=== PATIENT | female | born 1935 | race Caucasian/White ===

== ENCOUNTER 2025-03-02 14:46 | Inpatient (IN) | payer MEDICARE, BC, SELFPAY ==
[2025-03-02 14:48] VITALS: BP 181/78; PULSE 73; RESP 18; TEMP 36.7; O2SAT 97; BMI 25.7
--- NOTE | 2025-03-02 15:37 | EKG_ITS ---
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: : 1935 Requested By: Kt Fuentes Order Number: [id number] Reading MD: Kt Fuentes Measurements Intervals [place] Rate: 70 P: VA: QRS: -4 QRSD: 106 T: -60 QT: 367 QTc: 396 Interpretive Statements ATRIAL FIBRILLATION WITH ABERRANT CONDUCTION OR VENTRICULAR PREMATURE COMPLEXES POSSIBLE LEFT VENTRICULAR HYPERTROPHY [VOLTAGE CRITERIA PLUS LAE OR QRS WIDENING] PROBABLE LATERAL MYOCARDIAL INFARCTION , OF INDETERMINATE AGE [35 ms Q WAVE IN I/aVL/V5/V6] ST DEPRESSION, CONSIDER SUBENDOCARDIAL INJURY [0.1+ mV ST DEPRESSION] No previous ECG available for comparison /store/S0/[id number].pdf
--- NOTE | 2025-03-02 15:38 | PD.EDABDPN ---
ED Abdominal Pain RME/HPI General Chief Complaint: GI Bleed Stated complaint: RECTAL BLEED Time seen by provider: 03/02/25 15:24 Arrival date/time: 03/02/25 14:46 RME / HPI RME / HPI narrative: 89-year-old female patient with significant history of hypertension, came in for evaluation regarding lower abdominal pain. Onset of symptoms since last night as sudden onset of lower abdominal pain, described as sharp pain, severity moderate. Patient had total of 3 episodes old bloody stool, described as bright red. And currently her diaper is soaked with blood also patient denies any bleeding in the vagina. Denies any vomiting denies any other complaints. Patient is not taking any blood thinner. She stopped taking her aspirin several weeks ago. Related Data Home Medications ?Medication ?Instructions ?Recorded ?Confirmed Hydrocodone/Acetaminophen * (NORCO 1 tab PO Q6H PRN Low Back Pain 02/11/23 02/11/23 5/325 *) amlodipine 2.5 mg tablet 2.5 mg PO BID 02/11/23 02/11/23 aspirin 81 mg tablet 81 mg PO QDAY 02/11/23 02/11/23 atorvastatin 20 mg tablet 20 mg PO QPM 02/11/23 02/11/23 carvedilol 12.5 mg tablet 12.5 mg PO BID 02/11/23 02/11/23 dicyclomine 20 mg tablet 20 mg PO Q8HR PRN nausea/vomiting 02/11/23 02/11/23 docusate sodium 100 mg tablet 100 mg PO QDAY 02/11/23 02/11/23 ergocalciferol (vitamin D2) 50,000 50,000 unit PO Q7D 02/11/23 02/11/23 unit tablet furosemide 20 mg tablet 20 mg PO QDAY 02/11/23 02/11/23 lorazepam 0.5 mg tablet 0.5 mg PO Q12H PRN Anxiety 02/11/23 02/11/23 ondansetron HCl 4 mg tablet 4 mg PO Q6H 02/11/23 02/11/23 potassium chloride 20 mEq 20 meq PO QDAY 02/11/23 02/11/23 tablet,extended release Allergies Allergy/AdvReac Type Severity Reaction Status Date / Time No Known Allergies Allergy Verified 03/02/25 15:46 Review of Systems Review of Systems Narrative Review of Systems: Review of system reviewed and within normal limits except mentioned in HPI ED Exam Narrative Physical exam: VITAL SIGNS: Reviewed. GENERAL APPEARANCE: Alert and interactive, follows commands, no acute distress, HEAD AND FACE: Non-traumatic. ENT: PERRL, pale conjunctiva, eyelid no trauma, Mucous membrane moist. NECK: Supple, nontender, no nuchal rigidity. CHEST: No tenderness, no crepitus, no paradoxical movement, no retractions. LUNGS: Clear, well ventilated, symmetric, no rales, no wheezing, no ronchi, no stridor, good breath sounds bilaterally. HEART: Regular rate, regular rhythm, no murmur, no gallops. ABDOMEN: Soft, positive bowel sounds, nondistended, no guarding, nontender, no rebound, no masses, RECTAL: Deferred. GENITAL: Deferred. NEUROLOGICAL: Gross motor function intact sensory function intact, Appropriate for age. MUSCULOSKELETAL: low back nontender, full range of motion. EXTREMITIES: Nontender, full range of motion. SKIN: Color pale, dry, no rash, no lacerations, no abrasions, no contusions. LYMPHATICS: Deferred. Course Quality Measures none Orders Category Date Time Status COVID-19 Screening Questionnaire NOW Care 03/02/25 22:[address] Screening NOW Care 03/02/25 15:[address] Screening NOW Care 03/02/25 15:57 Active Decision to Admit X1 Care 03/02/25 22:27 Active EKG (ED ONLY) *Do not use* NOW Care 03/02/25 15:37 Completed Occult Blood,Stool (Nursing) NOW Care 03/02/25 15:37 Active Consult to Gastroenterology Stat Cons 03/02/25 22:[address] angio abdomen pelvis Stat Exams 03/02/25 15:57 Completed EKG (ED Only) Stat Exams 03/02/25 15:37 Draft CBC Stat Lab 03/02/25 15:53 Completed Comprehensive Metabolic Panel Stat Lab 03/02/25 15:53 Completed Occult Blood, Stool (LAB) Stat Lab 03/02/25 21:18 Completed Partial Thromboplastin Time Stat Lab 03/02/25 15:53 Completed Prothrombin Time with INR Stat Lab 03/02/25 15:53 Completed Stool Culture Stat Lab 03/02/25 22:25 Ordered Troponin I Stat Lab 03/02/25 15:53 Completed Type and Screen Stat Lab 03/02/25 15:53 Completed UA, C/S IF [Urinalysis, C/S if Indicated] Stat Lab 03/02/25 19:00 Completed Urinalysis Stat Lab 03/02/25 19:00 Completed Urine Culture Stat Lab 03/02/25 19:00 Received c diff [Clostridium Difficile PCR] Stat Lab 03/02/25 Ordered CIPROFLOXACIN/D5w 400 MG IVPB [Cipro Ivpb] Med 03/02/25 22:24 Active 400 mg in 200 ml IV X1 NA EVANS/NAHCO3/ANTHONY/PEG (Golytely) [Golytely] Med 03/02/25 22:24 Discontinued 4,000 ml PO X1 ONE Piper/Tazo 3.375 gm Premix [Zosyn] Med 03/02/25 20:26 Discontinued 3.375 gm in 50 ml IV X1 Ringers Lactated 1000 ml [Lactated Ringers] 1,000 ml Med 03/02/25 21:05 Discontinued IV 999 mls/hr metroNIDAZOLE/NS 500 MG IVPB [Flagyl 500 mg IV] Med 03/02/25 22:24 Active 500 mg in 100 ml IV X1 Vital Signs Vital signs: Vital Signs Temperature 98.1 F 03/02/25 14:48 Pulse Rate 73 03/02/25 14:48 Respiratory Rate 18 03/02/25 14:48 Blood Pressure 181/78 H 03/02/25 14:48 Pulse Oximetry (%) 97 03/02/25 14:48 Oxygen Delivery Method Room Air 03/02/25 14:48 Abdominal Pain MDM MDM Narrative MDM Narrative:: 89-year-old female patient with significant history of hypertension, came in for evaluation regarding lower abdominal pain. Onset of symptoms since last night as sudden onset of lower abdominal pain, described as sharp pain, severity moderate. Patient had total of 3 episodes old bloody stool, described as bright red. And currently her diaper is soaked with blood also patient denies any bleeding in the vagina. Denies any vomiting denies any other complaints. Patient is not taking any blood thinner. She stopped taking her aspirin several weeks ago. CBC showed leukocytosis of 14.7 hemoglobin of 16.2 hematocrit of 49, creatinine is normal urinalysis significant for UTI. CT scan of the abdomen and pelvis showed Diffuse severe nonspecific colitis pattern, differential would include ulcerative colitis, Crohn's disease EKG showed atrial fibrillation, ventricular rate of 70 bpm, no ST segment elevation or depression noted. I spoke with bootmaker, Dr. Valenzuela, who advised me to asked hospitalist to admit the patient for colonoscopy in the morning. Thank you Dr. Valenzuela Spoke with hospitalist, who admitted the patient. Patient data External records reviewed:: None Clinical information provided by:: patient Social determinants that could affect healthcare access:: none Patient has the following chronic illnesses:: Hypertension How is presenting disease/condition affected by chronic disease/condition?: uneffected by Evaluation data The following diagnostics were reviewed and interpreted by me:: lab results, radiology exam(s) and EKG tracing(s) Lab and/or radiology exams considered but not ordered:: None Interpretation Summary: See results MDM Medications / Prescriptions Medications or Prescriptions considered but not ordered:: None Medication administrations:: Medication Administration History Ciprofloxacin/Dextrose (Cipro Ivpb) 400 mg in 200 mls @ 200 mls/hr IV X1 ONE Stop: 03/02/25 23:23 Metronidazole (Flagyl 500 Mg Iv) 500 mg in 100 mls @ 100 mls/hr IV X1 ONE Stop: 03/02/25 23:23 Discontinued Medications Piperacillin/Tazobactam/Dextrose (Zosyn) 3.375 gm in 50 mls @ 100 mls/hr IV X1 ONE Stop: 03/02/25 20:55 Last Infusion: 03/02/25 22:39 Dose: Infused Documented By: Admin: 03/02/25 21:46 Dose: 100 mls/hr Documented By: ANNEMARIE Lactated Ringer's (Lactated Ringers) 1,000 mls @ 999 mls/hr IV .Q1H1M ONE Stop: 03/02/25 22:05 Last Admin: 03/02/25 21:49 Dose: 999 mls/hr Documented By: ANNEMARIE Polyethylene Glycol/Electrolytes (Na Evans/Nahco3/Anthony/Peg (Golytely) 4,000 Ml Btl) 4,000 ml PO X1 ONE Stop: 03/02/25 22:25 Cipro, Flagyl, Zosyn IV. Patient also received IV fluids for hydration Consultations Consultation(s) initiated? (list below): No Diagnosis Differential diagnosis abdominal pain: abdominal pain and gastroenteritis Most likely diagnosis given after review of the tests above:: Abdominal pain, severe colitis, UTI Admission Indicated Admission indicated?: indicated Explain why admission is indicated or not indicated:: For further management. Admission Request Was there a request for admission?: No Disposition Plan Disposition Plan: Admit Discharge Plan Plan Patient Disposition: Admit Acute Care w/in Hospital Prescriptions/Referrals Prescriptions/Med Rec: No Action atorvastatin 20 mg Tablet 20 mg PO QPM carvedilol 12.5 mg Tablet 12.5 mg PO BID Rx Instructions: must administer with a meal/food amlodipine 2.5 mg Tablet 2.5 mg PO BID dicyclomine 20 mg Tablet 20 mg PO Q8HR PRN (Reason: nausea/vomiting) aspirin 81 mg Tablet 81 mg PO QDAY docusate sodium 100 mg Tablet 100 mg PO QDAY ergocalciferol (vitamin D2) 50,000 unit Tablet 50,000 unit PO Q7D furosemide 20 mg Tablet 20 mg PO QDAY Hydrocodone/Acetaminophen * (NORCO 5/325 *) 1 TAB tablet 1 tab PO Q6H PRN (Reason: Low Back Pain) lorazepam 0.5 mg Tablet 0.5 mg PO Q12H PRN (Reason: Anxiety) ondansetron HCl [Zofran] 4 mg Tablet 4 mg PO Q6H potassium chloride 20 mEq Tablet Extended Release 20 meq PO QDAY Referrals: Barry Noel MD [Primary Care Provider] - In 1 week Problem List Clinical Impression: Abdominal pain, Severe hemorrhagic colitis, UTI (urinary tract infection) Patient/Caregiver Discharge Instructions Print Language: Icelandic Stand Alone Forms: Nathalia Award Info., Patient Portal Info Letter
[2025-03-02 15:42] VITALS: PULSE 75; RESP 12; O2SAT 96
--- NOTE | 2025-03-02 15:57 | XR_ITS ---
Examination: . CTA abdomen, with intravenous contrast. CTA pelvis, with intravenous contrast. 2-D sagittal and coronal reconstructions. 3-D reconstructions. Date and time of exam: March 02, 2025 2030 hours INDICATIONS: Lower abdominal pain and gastrointestinal bleeding beginning 2 days ago CTDI vol (mgy) 12.1 DLP (MGycm) 590 Technique: Multiple CTA images, 2.0 mm slice thickness, obtained abdomen, pelvis, with the high-resolution 64 slice scanner. 100 cc Isovue 370 is administered intravenously. Sagittal and coronal 2-D reconstructions are obtained. 3-D reconstructions, angiographic images are obtained. 3-D postprocessing, including vascular maximum intensity projections. Low dose protocols were performed. One or more of the following dose reduction techniques were used; automated exposure control, adjustment of the mA and/or KV according to patient size, use of iterative reconstruction technique. Findings: Liver is irregular in contour, no focal liver lesions Multiple gallstones Spleen is not enlarged No pancreatic mass No hydronephrosis Ectatic abdominal aorta which is heavily calcified No bowel obstruction, no pericecal inflammatory change Diffuse edema and inflammatory change involving the colon No bladder mass Diffuse advanced lumbar disc narrowing IMPRESSION: Diffuse severe nonspecific colitis pattern, differential would include ulcerative colitis, Crohn's disease
[2025-03-02 15:58] LABS: Basophils # (Auto) 0.1 Thou/mm3 (0.0-0.2); Basophils % (Auto) 0 % (0-2.5); Eosinophils # (Auto) 0.2 Thou/mm3 (0.0-0.5); Eosinophils % (Auto) 1 % (0-10); Hematocrit 49.0 % (36.0-46.0); Hemoglobin 16.2 g/dL (12.0-16.0); Immature Granulocytes Auto 0.04 Thou/mm3 (0.00-0.00); Lymphocytes # (Auto) 3.0 Thou/mm3 (1.0-4.8); Lymphocytes % (Auto) 21 % (10-50); Mean Corpuscular HGB Conc 33.1 g/dl (31.0-37.0); Mean Corpuscular Hemoglobin 32.5 pg (25.0-35.0); Mean Corpuscular Volume 98 fL (80-100); Monocytes # (Auto) 1.0 Thou/mm3 (0.0-0.8); Monocytes % (Auto) 7 % (0-12); Neutrophils # (Auto) 10.4 Thou/mm3 (1.8-7.7); Neutrophils % (Auto) 71 % (37-80); Nucleated Red Blood Cell # 0.00 Thou/mm3 (0.00-0.00); Nucleated Red Blood Cell % 0 /100 WBC (0); Platelet Count 319 Thou/mm3 (140-440); RDW Standard Deviation 50.4 fL (36.4-46.3); Red Blood Count 4.98 Miln/mm3 (4.00-5.20); White Blood Count 14.7 Thou/mm3 (3.6-11.0)
[2025-03-02 16:19] LABS: INR 1.0 (0.9-1.3); Partial Thromboplastin Time 26.9 Seconds (22.0-36.0); Prothrombin Time 11.3 Seconds (9.0-12.2)
[2025-03-02 16:26] LABS: Alanine Aminotransferase 17 U/L (10-49); Albumin, Serum 4.0 gm/dL (3.4-4.8); Albumin/Globulin Ratio 1.6 (1.2-2.2); Alkaline Phosphatase 136 U/L (46-116); Anion Gap 3 (7-16); Aspartate Amino Transferase 20 U/L (0-34); BUN/Creatinine Ratio 14 Ratio (12-20); Bilirubin,Total 0.9 mg/dL (0.3-1.2); Blood Urea Nitrogen 14 mg/dL (9-23); Calcium 10.9 mg/dL (8.3-10.6); Calcium (Corrected) 10.9 mg/dL (8.5-10.1); Carbon Dioxide 27.9 mMol/L (20.0-31.0); Chloride 109 mMol/L (98-107); Creatinine (Component) 1.0 mg/dL (0.6-1.3); Estimated Creatinine Clearance 41.8 mL/min (>60); Globulin 2.5 gm/dL (2.3-3.5); Glucose 110 mg/dL (74-106); Osmolality,Calculated 280 (275-295); Potassium 4.9 mMol/L (3.4-5.1); Sodium 140 mMol/L (136-145); Total Protein 6.5 gm/dL (5.7-8.2); Troponin I 0.032 ng/mL (0.0-0.045); eGFR 54 See Note
[2025-03-02 16:55] VITALS: BP 158/89; PULSE 62; RESP 18; TEMP 37.1; O2SAT 93
[2025-03-02 18:40] VITALS: BP 157/81; PULSE 78; RESP 17; TEMP 36.9; O2SAT 95
[2025-03-02 19:11] LABS: Collection Type, Urine Clean Catch
[2025-03-02 19:35] LABS: Bacteria,Urine 4+; Bilirubin,Urine Negative (Negative); Blood,Urine 3+ (Negative); Clarity,Urine Turbid (Clear/Hazy); Color,Urine Orange (Lt Yel-Yel); Culture Indicated,Urine Yes; Glucose, Urine Negative (Negative); Ketones,Urine Negative (Negative); Leukocyte Esterase,Urine Positive (Negative); Nitrite,Urine Positive (Negative); PH,Urine 6.0 (5.0-7.0); Protein,Urine 2+ (Neg - Trace); RBC,Urine 1747 /hpf (0-3); Specific Gravity,Urine 1.026 (1.001-1.035); Squamous Epithelial Cell,Urine 4 /hpf (0-5); Urobilinogen,Urine Negative mg/dL (0.0-1.0); WBC,Urine 787 /hpf (0-5)
[2025-03-02 19:49] VITALS: BP 149/80; PULSE 75; RESP 16; TEMP 36.9; O2SAT 96
--- NOTE | 2025-03-02 19:55 | PC.NURSE ---
PT BIBA FROM HOME FOR RECTAL BLEEDING. PT STATES THAT SHE NOTICED BRIGHT RED BLOOD IN HER BRIEF AND TOILET. PT CLAIMS SHE TAKES A BLOOD THINNER BUT ISNT POSITIVE OF WHICH ONE. THIS RN CALLED SON DELORIS TO CONFIRM IF PT IS ON BLOOD THINNER ACCORDING TO DELORIS SHE DOES NOT TAKE BLOOD THINNER
--- NOTE | 2025-03-02 20:00 | PC.NURSE ---
PT DUSTY FROM HOME FOR RECTAL BLEEDING. PT STATES THAT SHE NOTICED BRIGHT RED BLOOD IN HER BRIEF AND TOILET. PT CLAIMS SHE TAKES A BLOOD THINNER BUT ISNT POSITIVE OF WHICH ONE. THIS RN CALLED SON DELORIS TO CONFIRM IF PT IS ON BLOOD THINNER ACCORDING TO DELORIS SHE DOES NOT TAKE BLOOD THINNER . PER PT I THINK MY SON IS WRONG, I WAS GIVEN BLOOD THINNER AT [facility] . PT DOESNT KNOW WHICH BLOOD THINNER
[2025-03-02 21:37] LABS: OBS Card Lot # 0124; OBS Performed By macis3; OBS QC OK? Yes
[2025-03-02] MEDS: PIPER/TAZO 3.375 GM PREMIX 3.375 GM/50 ML BAG IV (21:46)
[2025-03-02 21:48] LABS: OBS Developer Lot # 0424; Occult Blood, Stool Positive (Negative)
[2025-03-02] MEDS: RINGERS LACTATED 1000 ML 1,000 ML 999 ML IV (21:49)
[2025-03-02] MEDS: CIPROFLOXACIN/D5w 400 MG IVPB 400 MG/200 ML BAG 200 MG IV (22:59)
--- NOTE | 2025-03-02 23:23 | PD.IMCONS ---
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 and the CT scan of the abdomen pelvis showed diffuse colitis and patient was subsequently admitted Admitting WBC count was 14.7 with a hemoglobin hematocrit 16.2 and 49.0 Patient also has nonbloody nausea vomiting cc:: cc: Review of Systems Review of Systems Systems Reviewed: All systems reviewed, normal except as documented Past Medical History Surgical History OTHER SURGICAL HX: Essential hypertension Hyperlipidemia Meds Home Medications and Allergies Home Medications ?Medication ?Instructions ?Recorded ?Confirmed ?Type Hydrocodone/Acetaminophen * (NORCO 1 tab PO Q6H PRN Low Back Pain 02/11/23 02/11/23 History 5/325 *) amlodipine 2.5 mg tablet 2.5 mg PO BID 02/11/23 02/11/23 History aspirin 81 mg tablet 81 mg PO QDAY 02/11/23 02/11/23 History atorvastatin 20 mg tablet 20 mg PO QPM 02/11/23 02/11/23 History carvedilol 12.5 mg tablet 12.5 mg PO BID 02/11/23 02/11/23 History dicyclomine 20 mg tablet 20 mg PO Q8HR PRN nausea/vomiting 02/11/23 02/11/23 History docusate sodium 100 mg tablet 100 mg PO QDAY 02/11/23 02/11/23 History ergocalciferol (vitamin D2) 50,000 50,000 unit PO Q7D 02/11/23 02/11/23 History unit tablet furosemide 20 mg tablet 20 mg PO QDAY 02/11/23 02/11/23 History lorazepam 0.5 mg tablet 0.5 mg PO Q12H PRN Anxiety 02/11/23 02/11/23 History ondansetron HCl 4 mg tablet 4 mg PO Q6H 02/11/23 02/11/23 History potassium chloride 20 mEq 20 meq PO QDAY 02/11/23 02/11/23 History tablet,extended release atenolol 50 mg tablet 50 mg PO Q24H 03/03/25 03/03/25 History atorvastatin 80 mg tablet 80 mg PO HS 03/03/25 03/03/25 History Allergies Allergy/AdvReac Type Severity Reaction Status Date / Time No Known Allergies Allergy Verified 03/02/25 15:46 Exam Vital Signs Temp Pulse Resp BP Pulse Ox O2 Del Method 98.4 F 75 16 149/80 H 96 Room Air 03/02/25 19:49 03/02/25 19:49 03/02/25 19:49 03/02/25 19:49 03/02/25 19:49 03/02/25 19:49 Constitutional Comments: Not in any acute distress Routine Respiratory Exam Comments: Normal to auscultation Routine Abdominal Exam Comments: Soft nontender positive bowel sounds Results Labs 03/03/25 05:00 03/03/25 05:00 Labs: Short CBC 03/02/25 Range/Units 15:53 WBC 14.7 H (3.6-11.0) Thou/mm3 Hgb 16.2 H (12.0-16.0) g/dL Hct 49.0 H (36.0-46.0) % Plt Count 319 (140-440) Thou/mm3 BMP 03/02/25 15:53 Sodium 140 Potassium 4.9 Chloride 109 H Carbon Dioxide 27.9 BUN 14 Creatinine 1.0 Glucose 110 H Calcium 10.9 H Cardiac Enzymes 03/02/25 Range/Units 15:53 Troponin I 0.032 (0.0-0.045) ng/mL Liver Function 03/02/25 Range/Units 15:53 Total Bilirubin 0.9 (0.3-1.2) mg/dL AST 20 (0-34) U/L ALT 17 (10-49) U/L Alkaline Phosphatase 136 H (46-116) U/L Albumin 4.0 (3.4-4.8) gm/dL Urine 03/02/25 Range/Units 19:00 Urine Color [place] A (Lt Yel-Yel) Urine Clarity Turbid A (Clear/Hazy) Urine pH 6.0 (5.0-7.0) Ur Specific [place] 1.026 (1.001-1.035) Urine Protein 2+ A (Neg - Trace) Urine Glucose (UA) Negative (Negative) Assessment and Plan Additional Assessment & Plan Additional Plan: # Hematochezia # Abnormal CT scan of the abdomen pelvis showing diffuse colitis Differential diagnoses include infectious versus inflammatory colitis possibility of ischemic colitis as well Plan Clear liquid diet GoLytely prep Consent for colonoscopy with possible biopsy possible therapeutic intervention under intravenous moderate sedation Stool for culture and sensitivity Stool for C. difficile # Nausea vomiting of uncertain etiology Will monitor the symptoms Before deciding for an upper endoscopy prior to discharge Other medical problems include Essential hypertension Hyperlipidemia Thank you very much for the opportunity to participate in the care of this patient
[2025-03-03] VITALS (11 sets, daily range): BP systolic 133–192; BP diastolic 56–101; PULSE 66–89; RESP 12–20; TEMP 36.1–36.8; O2SAT 94–98
[2025-03-03] MEDS: metroNIDAZOLE/NS 500 MG IVPB 500 MG/100 ML BAG 100 MG IV (00:02)
--- NOTE | 2025-03-03 00:33 | PC.LAC ---
PER HOUSE SUP TO WAIT UNTIL PT GETS UP STAIR TO GIVE PT GOLYTE. PROVIDER NOTIFED OF WAIT
--- NOTE | 2025-03-03 00:58 | PC.NURSE ---
DENA SANCHEZ WAS CALLED TO BRING MEDS FOR BP
[2025-03-03] MEDS: NA SU/NAHCO3/KC/PEG (Golytely) 4,000 ML BTL 4000 ML PO ×2 (01:33→23:26)
--- NOTE | 2025-03-03 02:49 | ESHP_ITS ---
<Statement entered by Malvin Arambula MD - 03/03/25 07:20> I have discussed and was present for the essential components of the history, physical examination, diagnosis, and treatment plan with the resident. I agree with the patient's care as documented by the resident and amended herein by me. Malvin Arambula MD FACP. Documentation for date of: 03/02/25 HPI History of Present Illness History of present illness: Sosa German is an 89-year-old F with a PMH of hypertension who presents today with hematochezia, abdominal pain, and vomiting. Patient reports that she woke up this morning to find her underwear soaked in blood at around 7 AM. Shortly after, she went to the restroom to have a bowel movement which produced stool with bright red blood. This prompted the patient to call her son to let him know what had happened and son called the ambulance which brought her to the emergency department. Patient reports that she noticed intermittent spotting of blood in her underwear along with lower abdominal pain starting 2 to 3 weeks ago. Then, beginning last week, she began to have nausea and vomiting as well as a sensation of pain and burning with peeing along with increased urinary frequency. She has had 5 episodes of non-bloody emesis since the onset of her symptoms and describes her urine as dark yellow in color. At the time of interview, she did not endorse current pain and denied any recent travel or sick contacts. In the ED, vitals showed: BP 181/78 HR 73 RR 18 Temp 98.1 SpO2 97% on room air ED Course: CBC showed leukocytosis with neutrophilic predominance, and, surprisingly, slightly high Hgb 16.2. Coagulation panel was within normal limits. CMP showed slightly reduced EGFR 54, slightly high corrected calcium 10.9, and slightly high alkaline phosphatase 136. UA showed turbid, orange urine with 4+ bacteria, 3+ blood, 2+ protein, high RBC 1747, high WBC 787, and positive for leukocyte esterase and nitrite. Stool occult blood was positive. Imaging: CTAP showed diffuse severe nonspecific colitis pattern, possibly indicative of ulcerative colitis or Crohn's disease. EKG, on machine read, showed atrial fibrillation with aberrant conduction or ventricular premature complexes, possible left ventricular hypertrophy, probable lateral myocardial infarction of indeterminate age, and ST depression possibly suggestive of subendocardial injury. In the ED, patient was given Zosyn, ciprofloxacin, metronidazole, and 1 L lactated Ringer's bolus. Patient was admitted for the work-up and management of GI bleed likely 2/2 severe hemorrhagic colitis, acute cystitis with hematuria, atrial fibrillation, and hypertensive urgency . GI (Dr. Valenzuela) is already aware of the patient and has asked that the patient to be started on GoLytely for possible endoscopy tomorrow. Review of Systems Review of Systems Narrative Review of Systems: General: Denies fevers or chills HEENT: Denies congestion or sore throat Heart: Endorses palpitations and leg swelling. Denies chest pain Lungs: Denies shortness of breath or cough Abdomen: Endorses blood in stool. Endorses left lower quadrant abdominal pain. Endorses nausea and vomiting. Denies constipation and diarrhea Genitourinary: Endorses dysuria and burning when peeing. Endorses urinary frequency and hematuria Neurology: Denies any changes in vision, weakness or difficulty speaking Review of systems otherwise negative except what is mentioned above. Past Medical History Past Medical History CARDIAC: Positive Cardiac Disorders, Hypercholesterolemia and Hypertension; Negative Congestive Heart Failure RESPIRATORY: Negative Chronic Obstructive Pulmonary Disease (COPD) or Asthma GENITOURINARY: Negative Renal Disease ENDOCRINE: Negative Diabetes Mellitus Type 1 or Diabetes Mellitus Type 2 HEMATOLOGIC: Negative Sickle Cell Disease OTHER HISTORY: Negative Blood Transfusions Social History SMOKING STATUS: Never smoker Past Medical History Comments PMH COMMENT: PMH: Hypertension, scoliosis PSH: hysterectomy (age 37) for uterine fibroids that caused her period to coming earlier and earlier until she was bleeding all the time, midurethral sling for urinary incontinence (age 40), cataract removal (age 84) Medications: amlodipine, atenolol, atorvastatin, Plavix, HCT, losartan, Protonix Allergies: none FH: HTN in mom and dad SH: lives in a house in [place] alone (has caregiver who comes 3x a week) Exam Vital Signs Temp Pulse Resp BP Pulse Ox O2 Del Method 97.7 F 80 18 152/101 H 95 Room Air 03/03/25 02:37 03/03/25 02:37 03/03/25 02:37 03/03/25 02:37 03/03/25 02:37 03/03/25 02:37 Narrative Exam Physical Exam: General: Alert, no acute distress. Skin: Warm, dry, intact, no obvious rash. Head: Normocephalic, atraumatic. Eye: Normal conjunctiva, PERRL. Throat: Oral mucosa moist. No obvious lesions in oropharynx. Cardiovascular: Regular rate and rhythm, no murmur, +S1/S2. Respiratory: Lungs are clear to auscultation, respirations unlabored, no crackles, no wheezing. Gastrointestinal: Tenderness to palpation of the LLQ abdomen. Soft, non- distended. No guarding or rebound tenderness. Extremities: No edema, no cyanosis, no clubbing. 2+ radial pulse bilaterally, 2+ posterior tibial pulse bilaterally. Neuro: No focal deficits observed. Conversant, moving all extremities. No overt cerebellar signs/incoordination. Psychiatric: Cooperative, appropriate affect. Results: Labs 03/02/25 15:53 03/02/25 15:53 Labs: Short CBC 03/02/25 Range/Units 15:53 WBC 14.7 H (3.6-11.0) Thou/mm3 Hgb 16.2 H (12.0-16.0) g/dL Hct 49.0 H (36.0-46.0) % Plt Count 319 (140-440) Thou/mm3 BMP 03/02/25 15:53 Sodium 140 Potassium 4.9 Chloride 109 H Carbon Dioxide 27.9 BUN 14 Creatinine 1.0 Glucose 110 H Calcium 10.9 H Cardiac Enzymes 03/02/25 Range/Units 15:53 Troponin I 0.032 (0.0-0.045) ng/mL Liver Function 03/02/25 Range/Units 15:53 Total Bilirubin 0.9 (0.3-1.2) mg/dL AST 20 (0-34) U/L ALT 17 (10-49) U/L Alkaline Phosphatase 136 H (46-116) U/L Albumin 4.0 (3.4-4.8) gm/dL Urine 03/02/25 Range/Units 19:00 Urine Color Pep A (Lt Yel-Yel) Urine Clarity Turbid A (Clear/Hazy) Urine pH 6.0 (5.0-7.0) Ur Specific [place] 1.026 (1.001-1.035) Urine Protein 2+ A (Neg - Trace) Urine Glucose (UA) Negative (Negative) Quality Measures Quality Measures none Advance care planning discussed with:: patient Medications Home Medications and Allergies Home Medications ?Medication ?Instructions ?Recorded ?Confirmed ?Type Hydrocodone/Acetaminophen * (NORCO 1 tab PO Q6H PRN Lo w Back Pain 02/11/23 02/11/23 History 5/325 *) amlodipine 2.5 mg tablet 2.5 mg PO BID 02/11/2302/11 History aspirin 81 mg tablet 81 mg PO QDAY 02/11/2302/11 History atorvastatin 20 mg tablet 20 mg PO QPM 02/11/23 History carvedilol 12.5 mg tablet 12.5 mg PO BID 02/11/2302/01 History dicyclomine 20 mg tablet 20 mg PO Q8HR PRN nausea/vom iting 02/11/23 02/11/23 History docusate sodium 100 mg tablet 100 mg PO QDAY 02/11/23 02/11/23 History ergocalciferol (vitamin D2) 50,000 50,000 unit PO Q7D 02/11/23 02/11/23 History unit tablet furosemide 20 mg tablet 20 mg PO QDAY 02/11/2302/11 History lorazepam 0.5 mg tablet 0.5 mg PO Q12H PRN Anxiety 0 02/11/23 02/11/23 History ondansetron HCl 4 mg tablet 4 mg PO Q6H 02/11/2302/11 History potassium chloride 20 mEq 20 meq PO QDAY 02/11/2302/01 History tablet,extended release Allergies Allergy/AdvReac Type Severity Reaction Status Date / Time No Known Allergies Allergy Verified 03/02/25 15:46 Visit Medications Acetaminophen (Acetaminophen 325 Mg Tablet) 650 mg PO Q6H PRN PRN Reason: PAIN SCALE 1-3 (mild Stop: 04/02/25 00:23 Amlodipine Besylate (Amlodipine Besylate 2.5 Mg Tablet) 2.5 mg PO BID MINOR Stop: 04/02/25 00:44 Atorvastatin Calcium (Atorvastatin Calcium 20 Mg Tablet) 20 mg PO QPM MINOR Stop: 04/02/25 20:59 Carvedilol (Carvedilol 12.5 Mg Tablet) 12.5 mg PO BID MINOR Stop: 04/02/25 00:44 Last Admin: 03/03/25 01:32 Dose: 12.5 mg Furosemide (Furosemide 20 Mg Tablet) 20 mg PO QDAY MINOR Stop: 04/02/25 08:59 Piperacillin/Tazobactam/Dextrose (Zosyn) 3.375 gm in 50 mls @ 100 mls/hr IV Q8HR MINOR Stop: 03/10/25 05:59 Lorazepam (Lorazepam 0.5 Mg Tablet) 0.5 mg PO Q12H PRN PRN Reason: Anxiety Stop: 03/08/25 00:37 Non-Formulary Medication (Ergocalciferol (Vitamin D2)) 50,000 unit PO Q7D MINOR Stop: 04/02/25 00:44 Non-Formulary Medication (Hydrocodone/Acetaminophen * (Sonoita 5/325 *)) 1 tab PO Q6H PRN PRN Reason: Low Back Pain Ondansetron HCl (Ondansetron Inj 2 Mg/Ml Inj 2 Ml) 4 mg IVP Q6H PRN; Protocol PRN Reason: NAUSEA OR VOMITING Stop: 04/02/25 00:23 Pantoprazole Sodium (Pantoprazole Inj 40 Mg Vial) 40 mg IVP QDAY MINOR Stop: 04/02/25 08:59 Sennosides (Senna Tablet) 1 tab PO QDAY PRN; Protocol PRN Reason: constipation Stop: 04/02/25 00:23 Discontinued Medications Piperacillin/Tazobactam/Dextrose (Zosyn) 3.375 gm in 50 mls @ 100 mls/hr IV X1 ONE Stop: 03/02/25 20:55 Last Infusion: 03/02/25 22:39 Dose: Infused Lactated Ringer's (Lactated Ringers) 1,000 mls @ 999 mls/hr IV .Q1H1M ONE Stop: 03/02/25 22:05 Last Infusion: 03/02/25 23:18 Dose: Infused Ciprofloxacin/Dextrose (Cipro Ivpb) 400 mg in 200 mls @ 200 mls/hr IV X1 ONE Stop: 03/02/25 23:23 Last Infusion: 03/03/25 00:00 Dose: Infused Metronidazole (Flagyl 500 Mg Iv) 500 mg in 100 mls @ 100 mls/hr IV X1 ONE Stop: 03/02/25 23:23 Last Infusion: 03/03/25 01:06 Dose: Infused Polyethylene Glycol/Electrolytes (Na Evans/Nahco3/Anthony/Peg (Golytely) 4,000 Ml Btl) 4,000 ml PO X1 ONE Stop: 03/02/25 22:25 Last Admin: 03/03/25 00:31 Dose: Not Given Polyethylene Glycol/Electrolytes (Na Evans/Nahco3/Anthony/Peg (Golytely) 4,000 Ml Btl) 4,000 ml PO X1 ONE Stop: 03/02/25 23:27 Last Admin: 03/03/25 01:33 Dose: 4,000 ml Assessment & Plan Assessment Sosa German is an 89-year-old F with a PMH of hypertension who presents today with hematochezia, abdominal pain, and vomiting. Patient was admitted for the work-up and management of GI bleed likely 2/2 severe hemorrhagic colitis, acute cystitis with hematuria, atrial fibrillation, and hypertensive urgency. #GI bleed (likely lower) #likely 2/2 severe hemorrhagic colitis #Hematochezia #Abdominal Pain Initial presentation: nicole hematochezia and bright, red, bloody stool starting today without hematemesis favors a source of bleeding in the lower GI tract This is further supported by CTAP showing a diffuse severe nonspecific colitis pattern (possibly indicative of ulcerative colitis or Crohn's disease) Hgb upon admission was 16.2, coagulation panel WNL Diagnostic Inquiry -Stool Cx -Pending colonoscopy (already on GoLytely) Treatment Plan -IV Protonix 40 mg qD for GI prophylaxis -NPO -Pain control -Monitor Hgb, transfuse if <7 -Strict I's & O's #Acute cystitis with hematuria (and pyuria) #Dysuria #Leukocytosis Initial presentation: painful, burning sensation with increased urinary frequency producing orange pee beginning a week ago UA showed turbid, orange urine with 4+ bacteria, 3+ blood, 2+ protein, high RBC 1747, high WBC 787, and positive for leukocyte esterase and nitrite (suggesting UTI) Hgb upon admission was 16.2, coagulation panel WNL Diagnostic Inquiry -UCx, BCx Treatment Plan -IV Zosyn 3.375 gm q8HR -Monitor Hgb, transfuse if <7 #Atrial Fibrillation EKG, on machine read, showed atrial fibrillation with aberrant conduction or ventricular premature complexes, possible left ventricular hypertrophy, probable lateral myocardial infarction of indeterminate age, and ST depression possibly suggestive of subendocardial injury However, heart rate upon admission was 73 Diagnostic Inquiry -No current recommendation Treatment Plan -Restarted home medication: PO Coreg 12.5 mg BID for rate control -Holding home medications for atrial clot prophylaxis due to patient's current bleeding risk (aspirin and clopidogrel) #Hypertensive urgency BP upon admission was 181/78 and systolic BP has climbed as high as 200+ No signs of end organ damage Patient's home antihypertensive regimen includes: atenolol, amlodipine, carvedilol, furosemide, hydrochlorothiazie, and losartan Diagnostic Inquiry -No current recommendation Treatment Plan -Restarted home medication: PO Coreg 12.5 mg BID -Restarted home medication: PO Lasix 20 mg qD -Consider starting patient's other home antihypertensives if blood pressure remains uncontrolled #Hypercalcemia Upon admission, corrected calcium was slightly elevated at 10.9 Currently asymptomatic Diagnostic Inquiry -No current recommendation Treatment Plan -Refrain from fluid resuscitation until BP is more adequately controlled #Chronic medical problems #HLD Diagnostic Inquiry -No current recommendation Treatment Plan -Restarted home medications: PO Lipitor 20 mg qHS Hospital Management: Disposition: pending colonoscopy Diet: NPO, pending colonoscopy GI Prophylaxis: Protonix Bowel Prophylaxis: Senna DVT Prophylaxis: SCDs (bleeding risk) CODE STATUS: Full Code I have examined the patient and conferred with my attending, Dr. Arambula and my senior resident, Dr. Jean, regarding them. Wesley Arroyo, DO PGY-1 Internal Medicine
--- NOTE | 2025-03-03 03:35 | PC.NURSE ---
RN ASSISTED PT TO BEDSIDE COMMOND TO HAVE A BOWEL MOVEMENT
[2025-03-03 05:25] LABS: Basophils # (Auto) 0.1 Thou/mm3 (0.0-0.2); Basophils % (Auto) 1 % (0-2.5); Eosinophils # (Auto) 0.2 Thou/mm3 (0.0-0.5); Eosinophils % (Auto) 2 % (0-10); Hematocrit 46.7 % (36.0-46.0); Hemoglobin 15.6 g/dL (12.0-16.0); Immature Granulocytes Auto 0.05 Thou/mm3 (0.00-0.00); Lymphocytes # (Auto) 1.7 Thou/mm3 (1.0-4.8); Lymphocytes % (Auto) 13 % (10-50); Mean Corpuscular HGB Conc 33.4 g/dl (31.0-37.0); Mean Corpuscular Hemoglobin 32.9 pg (25.0-35.0); Mean Corpuscular Volume 99 fL (80-100); Monocytes # (Auto) 0.9 Thou/mm3 (0.0-0.8); Monocytes % (Auto) 7 % (0-12); Neutrophils # (Auto) 10.7 Thou/mm3 (1.8-7.7); Neutrophils % (Auto) 78 % (37-80); Nucleated Red Blood Cell # 0.00 Thou/mm3 (0.00-0.00); Nucleated Red Blood Cell % 0 /100 WBC (0); Platelet Count 271 Thou/mm3 (140-440); RDW Standard Deviation 50.4 fL (36.4-46.3); Red Blood Count 4.74 Miln/mm3 (4.00-5.20); White Blood Count 13.6 Thou/mm3 (3.6-11.0)
[2025-03-03 05:57] LABS: Alanine Aminotransferase 13 U/L (10-49); Albumin, Serum 3.6 gm/dL (3.4-4.8); Albumin/Globulin Ratio 1.6 (1.2-2.2); Alkaline Phosphatase 116 U/L (46-116); Anion Gap 8 (7-16); Aspartate Amino Transferase 18 U/L (0-34); BUN/Creatinine Ratio 11 Ratio (12-20); Bilirubin,Total 1.4 mg/dL (0.3-1.2); Blood Urea Nitrogen 9 mg/dL (9-23); Calcium 10.2 mg/dL (8.3-10.6); Calcium (Corrected) 10.5 mg/dL (8.5-10.1); Carbon Dioxide 25.7 mMol/L (20.0-31.0); Chloride 106 mMol/L (98-107); Creatinine (Component) 0.8 mg/dL (0.6-1.3); Estimated Creatinine Clearance 52.2 mL/min (>60); Globulin 2.3 gm/dL (2.3-3.5); Glucose 122 mg/dL (74-106); Magnesium 1.6 mg/dL (1.6-2.6); Osmolality,Calculated 279 (275-295); Phosphorous 2.7 mg/dL (2.4-5.1); Potassium 3.7 mMol/L (3.4-5.1); Sodium 140 mMol/L (136-145); Total Protein 5.9 gm/dL (5.7-8.2); eGFR > 60 See Note
[2025-03-03] MEDS: PIPER/TAZO 3.375 GM PREMIX 3.375 GM/50 ML BAG IV ×3 (06:16→21:24)
--- NOTE | 2025-03-03 07:37 | PC.NURSE ---
REPORT CALLED TO MARISSA FAJARDO. NO FURTHER QUESTIONS.
[2025-03-03] MEDS: CHOLECALCIFEROL (Vitamin D3) 1,000 IU TABLET 2000 IU PO (09:50)
[2025-03-03 11:56] LABS: Clostridium Difficile PCR Negative (Negative)
--- NOTE | 2025-03-03 16:24 | PC.SS ---
Rounding note: Pt. was moved to room 366, pending colonoscopy today, GI bleed.
--- NOTE | 2025-03-03 17:30 | ESPR_ITS ---
<Statement entered by Carolyn Brown MD - 03/04/25 17:55> I have reviewed the note and agree with the resident's assessment & plan with exceptions as below. I have personally reviewed labs, imaging, home meds/prior records, examined the patient, formulated and discussed management plan with the IM team. Patient examined at bedside today. Patient reports improvement. Patient is on bowel prep for colonoscopy. Hemoglobin stable today. Repeat hematology and chemistry in AM. Follow-up with GI recommendations. Carolyn Brown, PGY-2 Internal Medicine Documentation for date of: 03/03/25 Subjective Subjective Interval history: Patient was seen and examined at bedside. No acute events took place overnight. As of the morning, patient has not had a bowel movement. Patient states that she looks pale indeed. Patient has been NPO in anticipation of colonoscopy later today. She relates that typically her son takes care of her and the presenting symptoms of underwear soaked in blood was noted by her son who is absent in the room. Reports no new complaints. Exam Vital Signs Temp Pulse Resp BP Pulse Ox O2 Del Method 97.4 F 72 17 146/72 H 96 Room Air 03/03/25 16:00 03/03/25 16:00 03/03/25 16:00 03/03/25 16:00 03/03/25 16:00 03/03/25 16:00 Narrative Exam Physical Exam: General: Alert, no acute distress. Skin: Warm, dry, intact, no obvious rash. Head: Normocephalic, atraumatic. Eye: Normal conjunctiva, PERRL. Throat: Oral mucosa moist. No obvious lesions in oropharynx. Cardiovascular: Regular rate, atrial fibrillation noted on Tele monitor, no murmur, +S1/S2. Respiratory: Lungs are clear to auscultation, respirations unlabored, no crackles, no wheezing. Gastrointestinal: Tenderness to palpation of the LLQ abdomen. Soft, non- distended. No guarding or rebound tenderness. Extremities: No edema, no cyanosis, no clubbing. 2+ radial pulse bilaterally, 2+ posterior tibial pulse bilaterally. Neuro: No focal deficits observed. Conversant, moving all extremities. No overt cerebellar signs/incoordination. Psychiatric: Cooperative, appropriate affect. Objective Labs 03/06/25 04:56 03/06/25 04:56 Labs: Laboratory Results - last 24 hr 03/02/25 03/02/25 03/02/25 15:53 19:00 21:18 WBC RBC Hgb Hct MCV MCH MCHC RDW Std Deviation Plt Count Neut % (Auto) Lymph % (Auto) Frio % (Auto) Eos % (Auto) Baso % (Auto) Neut # (Auto) Lymph # (Auto) Frio # (Auto) Eos # (Auto) Baso # (Auto) Immature Gran # (Auto) Absolute Nucleated RBC Immature Gran % Nucleated RBC % Sodium Potassium Chloride Carbon Dioxide Anion Gap BUN Creatinine Estim Creat Clear Calc eGFR BUN/Creatinine Ratio Glucose Calculated Osmolality Calcium Corrected Calcium Phosphorus Magnesium Total Bilirubin AST ALT Alkaline Phosphatase Total Protein Albumin Globulin Albumin/Globulin Ratio Ur Collection Type Clean Catch Urine Color [place] A Urine Clarity Turbid A Urine pH 6.0 Ur Specific [place] 1.026 Urine Protein 2+ A Urine Glucose (UA) Negative Urine Ketones Negative Urine Blood 3+ A Urine Nitrite Positive Urine Bilirubin Negative Urine Urobilinogen (Auto) Negative Ur Leukocyte Esterase Positive Urine RBC 1747 H Urine WBC 787 H Ur Squamous Epith Cells 4 Urine Bacteria 4+ A Ur Culture Indicated? Yes Stool Occult Blood Positive A Stl C. diff Tox B Gene Blood Type O Negative Antibody Screen NEGATIVE 03/03/25 03/03/25 03:41 05:00 WBC 13.6 H RBC 4.74 Hgb 15.6 Hct 46.7 H MCV 99 MCH 32.9 MCHC 33.4 RDW Std Deviation 50.4 H Plt Count 271 D Neut % (Auto) 78 Lymph % (Auto) 13 Frio % (Auto) 7 Eos % (Auto) 2 Baso % (Auto) 1 Neut # (Auto) 10.7 H Lymph # (Auto) 1.7 Frio # (Auto) 0.9 H Eos # (Auto) 0.2 Baso # (Auto) 0.1 Immature Gran # (Auto) 0.05 H Absolute Nucleated RBC 0.00 Immature Gran % 0 Nucleated RBC % 0 Sodium 140 Potassium 3.7 D Chloride 106 Carbon Dioxide 25.7 Anion Gap 8 BUN 9 Creatinine 0.8 Estim Creat Clear Calc 52.2 L eGFR > 60 BUN/Creatinine Ratio 11 L Glucose 122 H Calculated Osmolality 279 Calcium 10.2 Corrected Calcium 10.5 H Phosphorus 2.7 Magnesium 1.6 Total Bilirubin 1.4 H D AST 18 ALT 13 Alkaline Phosphatase 116 D Total Protein 5.9 Albumin 3.6 Globulin 2.3 Albumin/Globulin Ratio 1.6 Ur Collection Type Urine Color Urine Clarity Urine pH Ur Specific [place] Urine Protein Urine Glucose (UA) Urine Ketones Urine Blood Urine Nitrite Urine Bilirubin Urine Urobilinogen (Auto) Ur Leukocyte Esterase Urine RBC Urine WBC Ur Squamous Epith Cells Urine Bacteria Ur Culture Indicated? Stool Occult Blood Stl C. diff Tox B Gene Negative Blood Type Antibody Screen Quality Measures Quality Measures none Advance care planning discussed with:: patient Assessment & Plan Assessment Current Active Medications: Generic Name Dose Route Start Last Admin Trade Name Freq PRN Reason Stop Dose Admin Acetaminophen 650 mg 03/03/25 00:24 Acetaminophen 325 Mg Tablet PO 04/02/25 00:23 Q6H PRN PAIN SCALE 1-3 (mild Hydrocodone Bitart/Acetaminophen 1 tab 03/03/25 00:38 Hydrocodone/Apap 5/325 Tablet PO 03/08/25 00:37 Q6HR PRN Low Back Pain Protocol Amlodipine Besylate 2.5 mg 03/03/25 00:45 Amlodipine Besylate 2.5 Mg Tablet PO 04/02/25 00:44 BID MINOR Atorvastatin Calcium 20 mg 03/03/25 21:00 Atorvastatin Calcium 20 Mg Tablet PO 04/02/25 20:59 QPM MINOR Carvedilol 12.5 mg 03/03/25 00:45 03/03/25 09:50 Carvedilol 12.5 Mg Tablet PO 04/02/25 00:44 12.5 mg BID MINOR Administration Furosemide 20 mg 03/03/25 09:00 03/03/25 09:50 Furosemide 20 Mg Tablet PO 04/02/25 08:59 20 mg QDAY MINOR Administration Piperacillin/Tazobactam/Dextrose 3.375 gm in 50 mls @ 100 mls/hr 03/03/25 06:00 03/03/25 14:55 Zosyn IV 03/10/25 05:59 100 mls/hr Q8HR MINOR Administration Lorazepam 0.5 mg 03/03/25 00:38 Lorazepam 0.5 Mg Tablet PO 03/08/25 00:37 Q12H PRN Anxiety Ondansetron HCl 4 mg 03/03/25 00:24 Ondansetron Inj 2 Mg/Ml Inj 2 Ml IVP 04/02/25 00:23 Q6H PRN NAUSEA OR VOMITING Protocol Pantoprazole Sodium 40 mg 03/03/25 09:00 03/03/25 09:50 Pantoprazole Inj 40 Mg Vial IVP 04/02/25 08:59 40 mg QDAY MINOR Administration Sennosides 1 tab 03/03/25 00:24 Senna Tablet PO 04/02/25 00:23 QDAY PRN constipation Protocol Vitamin D 2,000 iu 03/03/25 09:00 03/03/25 09:50 Cholecalciferol (Vitamin D3) 1,000 Iu Tablet PO 04/02/25 08:59 2,000 iu QDAY MINOR Administration Protocol Plan Assessment Sosa German is an 89-year-old F with a PMH of hypertension who presents today with hematochezia, abdominal pain, and vomiting. Patient was admitted for the work-up and management of GI bleed likely 2/2 severe hemorrhagic colitis, acute cystitis with hematuria, atrial fibrillation, and hypertensive urgency. #GI bleed (likely lower) #likely 2/2 severe hemorrhagic colitis #Hematochezia #Abdominal Pain Initial presentation: nicole hematochezia and bright, red, bloody stool starting today without hematemesis favors a source of bleeding in the lower GI tract This is further supported by CTAP showing a diffuse severe nonspecific colitis pattern (possibly indicative of ulcerative colitis or Crohn's disease) Hgb upon admission was 16.2, coagulation panel WNL Diagnostic Inquiry -Stool Cx -Pending colonoscopy (already on GoLytely) Treatment Plan -IV Protonix 40 mg qD for GI prophylaxis -NPO -Pain control -Monitor Hgb, transfuse if <7 -Strict I's & O's -Holding home blood thinners due to patient's current bleeding risk (aspirin and clopidogrel) #Acute cystitis with hematuria (and pyuria) #Dysuria #Leukocytosis Initial presentation: painful, burning sensation with increased urinary frequency producing orange pee beginning a week ago UA showed turbid, orange urine with 4+ bacteria, 3+ blood, 2+ protein, high RBC 1747, high WBC 787, and positive for leukocyte esterase and nitrite (suggesting UTI) Hgb upon admission was 16.2, coagulation panel WNL Diagnostic Inquiry -UCx, BCx Treatment Plan -IV Zosyn 3.375 gm q8HR -Monitor Hgb, transfuse if <7 #Atrial Fibrillation EKG, on machine read, showed atrial fibrillation with aberrant conduction or ventricular premature complexes, possible left ventricular hypertrophy, probable lateral myocardial infarction of indeterminate age, and ST depression possibly suggestive of subendocardial injury However, heart rate upon admission was 73. [id number] score 4: Consider adding anticoagulation for risk of thromboembolic stroke after GI scope studies. Diagnostic Inquiry -No current recommendation Treatment Plan -Restarted home medication: PO Coreg 12.5 mg BID for rate control #Hypertensive urgency BP upon admission was 181/78 and systolic BP has climbed as high as 200+ No signs of end organ damage Patient's home antihypertensive regimen includes: atenolol, amlodipine, carvedilol, furosemide, hydrochlorothiazie, and losartan Diagnostic Inquiry -No current recommendation Treatment Plan -Restarted home medication: PO Coreg 12.5 mg BID -PO Lasix 20 mg qD -ON HOLD while pt is drinking laxative GoLytely in preparation for colonoscopy -Consider starting patient's other home antihypertensives if blood pressure remains uncontrolled #Hypercalcemia Upon admission, corrected calcium was slightly elevated at 10.9 Currently asymptomatic Diagnostic Inquiry -No current recommendation Treatment Plan -Refrain from fluid resuscitation until BP is more adequately controlled -PO Lasix 20 mg qD -ON HOLD while pt is drinking laxative GoLytely in preparation for colonoscopy -ordered PTH level -ordered vitD level #Chronic medical problems #HLD Diagnostic Inquiry -No current recommendation Treatment Plan -Restarted home medications: PO Lipitor 20 mg qHS Hospital Management: Disposition: pending colonoscopy Diet: NPO, pending colonoscopy GI Prophylaxis: Protonix Bowel Prophylaxis: Senna DVT Prophylaxis: SCDs (bleeding risk) CODE STATUS: Full Code This case was discussed with my attending physician, Dr. Gold, and senior resident, Dr. Brown. Doroteo Shaffer, DO PGY I Attending Provider Attestation/Addendum Patient was seen with medical claims analyst. She is here for GI bleed. Monitor H and H. GI work up as planned. Diagnostic and treatment plan as above.
--- NOTE | 2025-03-03 20:55 | ESPR_ITS ---
Documentation for date of: 03/03/25 Subjective Subjective Interval history: Stool C. difficile toxin is negative Patient not cleared for the colonoscopy Additional GoLytely Procedure rescheduled for tomorrow Exam Vital Signs Temp Pulse Resp BP Pulse Ox O2 Del Method 97.4 F 72 17 146/72 H 96 Room Air 03/03/25 16:00 03/03/25 16:00 03/03/25 16:00 03/03/25 16:00 03/03/25 16:00 03/03/25 16:00 Objective Labs 03/03/25 05:00 03/03/25 05:00 Labs: Laboratory Results - last 24 hr 03/02/25 03/03/25 03/03/25 21:18 03:41 05:00 WBC 13.6 H RBC 4.74 Hgb 15.6 Hct 46.7 H MCV 99 MCH 32.9 MCHC 33.4 RDW Std Deviation 50.4 H Plt Count 271 D Neut % (Auto) 78 Lymph % (Auto) 13 [place] % (Auto) 7 Eos % (Auto) 2 Baso % (Auto) 1 Neut # (Auto) 10.7 H Lymph # (Auto) 1.7 [place] # (Auto) 0.9 H Eos # (Auto) 0.2 Baso # (Auto) 0.1 Immature Gran # (Auto) 0.05 H Absolute Nucleated RBC 0.00 Immature Gran % 0 Nucleated RBC % 0 Sodium 140 Potassium 3.7 D Chloride 106 Carbon Dioxide 25.7 Anion Gap 8 BUN 9 Creatinine 0.8 Estim Creat Clear Calc 52.2 L eGFR > 60 BUN/Creatinine Ratio 11 L Glucose 122 H Calculated Osmolality 279 Calcium 10.2 Corrected Calcium 10.5 H Phosphorus 2.7 Magnesium 1.6 Total Bilirubin 1.4 H D AST 18 ALT 13 Alkaline Phosphatase 116 D Total Protein 5.9 Albumin 3.6 Globulin 2.3 Albumin/Globulin Ratio 1.6 Stool Occult Blood Positive A Stl C. diff Tox B Gene Negative Impressions Impression: # Hematochezia # abnormal CT scan of the abdomen pelvis Continue GoLytely prep colonoscopy a.m. Assessment & Plan A&P Narrative # Hematochezia # Abnormal CT scan of the abdomen pelvis showing diffuse colitis Differential diagnoses include infectious versus inflammatory colitis possibility of ischemic colitis as well Plan Clear liquid diet GoLytely prep Consent for colonoscopy with possible biopsy possible therapeutic intervention under intravenous moderate sedation Stool for culture and sensitivity Stool for C. difficile # Nausea vomiting of uncertain etiology Will monitor the symptoms Before deciding for an upper endoscopy prior to discharge Other medical problems include Essential hypertension Hyperlipidemia Thank you very much for the opportunity to participate in the care of this patient Time Spent With Patient Time: Total time spent is greater than 50% in coordination of care (as documented) at patient's floor/unit and/or counseling patient:
[2025-03-03] MEDS: ATORVASTATIN CALCIUM 20 MG TABLET PO (21:24)
[2025-03-04] VITALS (21 sets, daily range): BP systolic 115–172; BP diastolic 58–90; PULSE 64–88; RESP 12–156; TEMP 36.1–36.6; O2SAT 91–97
--- NOTE | 2025-03-04 03:47 | PC.NURSE ---
Pt has no list of home medications. Family will be notified to bring meds.
[2025-03-04] MEDS: PIPER/TAZO 3.375 GM PREMIX 3.375 GM/50 ML BAG IV ×3 (05:47→23:57)
[2025-03-04 06:17] LABS: Basophils # (Auto) 0.1 Thou/mm3 (0.0-0.2); Basophils % (Auto) 1 % (0-2.5); Eosinophils # (Auto) 0.4 Thou/mm3 (0.0-0.5); Eosinophils % (Auto) 5 % (0-10); Hematocrit 42.0 % (36.0-46.0); Hemoglobin 13.8 g/dL (12.0-16.0); Immature Granulocytes Auto 0.04 Thou/mm3 (0.00-0.00); Lymphocytes # (Auto) 2.2 Thou/mm3 (1.0-4.8); Lymphocytes % (Auto) 24 % (10-50); Mean Corpuscular HGB Conc 32.9 g/dl (31.0-37.0); Mean Corpuscular Hemoglobin 32.5 pg (25.0-35.0); Mean Corpuscular Volume 99 fL (80-100); Monocytes # (Auto) 0.8 Thou/mm3 (0.0-0.8); Monocytes % (Auto) 8 % (0-12); Neutrophils # (Auto) 5.8 Thou/mm3 (1.8-7.7); Neutrophils % (Auto) 62 % (37-80); Nucleated Red Blood Cell # 0.00 Thou/mm3 (0.00-0.00); Nucleated Red Blood Cell % 0 /100 WBC (0); Platelet Count 266 Thou/mm3 (140-440); RDW Standard Deviation 50.2 fL (36.4-46.3); Red Blood Count 4.25 Miln/mm3 (4.00-5.20); White Blood Count 9.3 Thou/mm3 (3.6-11.0)
[2025-03-04 06:55] LABS: Parathyroid Hormone Intact 240.7 pg/ml (18.5-88.0)
[2025-03-04 06:57] LABS: Vitamin D 25 Hydroxy Total 30.1 ng/mL (7.3-40.2)
[2025-03-04 07:31] LABS: Alanine Aminotransferase 11 U/L (10-49); Albumin, Serum 3.1 gm/dL (3.4-4.8); Albumin/Globulin Ratio 1.6 (1.2-2.2); Alkaline Phosphatase 91 U/L (46-116); Anion Gap 13 (7-16); Aspartate Amino Transferase 24 U/L (0-34); BUN/Creatinine Ratio 8 Ratio (12-20); Bilirubin,Total 1.3 mg/dL (0.3-1.2); Blood Urea Nitrogen 7 mg/dL (9-23); Calcium 10.0 mg/dL (8.3-10.6); Calcium (Corrected) 10.7 mg/dL (8.5-10.1); Carbon Dioxide 25.9 mMol/L (20.0-31.0); Chloride 106 mMol/L (98-107); Creatinine (Component) 0.9 mg/dL (0.6-1.3); Estimated Creatinine Clearance 46.5 mL/min (>60); Globulin 2.0 gm/dL (2.3-3.5); Glucose 80 mg/dL (74-106); Magnesium 1.6 mg/dL (1.6-2.6); Osmolality,Calculated 285 (275-295); Phosphorous 3.1 mg/dL (2.4-5.1); Potassium 4.8 mMol/L (3.4-5.1); Sodium 145 mMol/L (136-145); Total Protein 5.1 gm/dL (5.7-8.2); eGFR > 60 See Note
[2025-03-04] MEDS: CHOLECALCIFEROL (Vitamin D3) 1,000 IU TABLET 2000 IU PO (08:35)
[2025-03-04 09:25] LABS: Sed Rate (ESR) 5 mm/hr (0-30)
[2025-03-04 09:52] LABS: C-Reactive Protein 1.1 mg/dL (0.0-0.9)
--- NOTE | 2025-03-04 11:36 | PC.SS ---
Patient is a 89 year old female presenting to the hospital for GI bleed and Hematochezia. WEDDING COORDINATOR made contact with patient at bedside and explained role and reason for visit. WEDDING COORDINATOR confirmed demographic information. Patient stated that she was not at [facility] and was most recently at [facility]. Patient confirmed next of kin son Aidan ph: [phone]. Patient reports she uses a walker for ADL?S and has a wheelchair she uses occasionally. Patient stated that she received oxygen at [facility] and is unsure of how many liters. Patient stated that she would like to return to [facility] if doctors recommend it. Patient stated that her PCP is Dr. Barry Noel. Patient stated that she will be receiving colonoscopy today. PCP: Dr. Noel Next of Kin: Aidan German ph:[phone] D/C: follow up with patient
--- NOTE | 2025-03-04 12:23 | PC.SS ---
STORY ANALYST placed a phone call to verify that patient was not coming from [facility]. STC confirmed that they did not come from [facility]. STORY ANALYST placed phone call to verify if patient was coming from [facility]. [facility] stated that patient was d/c from their facility on 02/22/25. STORY ANALYST spoke to next of kin son, Aidan. Patient son confirmed that patient was discharged from [facility] and returned home. Patient lives alone. STORY ANALYST spoke to son about d/c plan, son stated that he would like patient to d/c home and he is able to provide transportation.
--- NOTE | 2025-03-04 14:31 | PC.SS ---
Rounding note: Patient pending colonoscopy.
[2025-03-04] MEDS: SODIUM CHLORIDE 0.9% 500 ML 500 ML 20 ML IV (17:13)
--- NOTE | 2025-03-04 17:34 | SUR.PHASEI ---
Pt. arrived to recovery via gurney, eyes open, responds to verbal commands, VSS with exception of 02 saturation of 91% on room air, supplemental 02 applied via NC at 3 liters, lung sounds clear, equal expansion bartolo., no c/o pain or nausea at this time. Report received from Beckie ANN.
--- NOTE | 2025-03-04 17:49 | SUR.PHASEI ---
Pt. is sitting up tolerating sips of water.
--- NOTE | 2025-03-04 17:52 | SUR.PHASEI ---
Called and gave report on pt. s/p colonoscopy to Jocy ANN on M/S unit.
--- NOTE | 2025-03-04 17:56 | ESPR_ITS ---
<Statement entered by Carolyn Brown MD - 03/05/25 17:50> I have reviewed the note and agree with the resident's assessment & plan with exceptions as below. I have personally reviewed labs, imaging, home meds/prior records, examined the patient, formulated and discussed management plan with the IM team. Patient examined at bedside today. No acute overnight events, patient still on bowel prep for colonoscopy. Hemoglobin stable at this time. Will follow-up with patient after colonoscopy. Repeat hematology and chemistry in AM. Carolyn Brown, PGY-2 Internal Medicine Documentation for date of: 03/04/25 Subjective Subjective Interval history: Patient was seen and examined at bedside. No acute events took place overnight. This morning, patient endorses having soft, non-bloody bowel movements. Patient states she has some rectal burning, and some pain during bowel movements. Patient has been NPO in anticipation of colonoscopy later today. She relates that typically her son takes care of her and the presenting symptoms of underwear soaked in blood was noted by her son who is absent in the room. Reports no new complaints. Exam Vital Signs Temp Pulse Resp BP Pulse Ox O2 Del Method O2 Flow Rate 97.4 F 85 14 133/76 H 96 Room Air 2 03/04/25 17:54 03/04/25 17:54 03/04/25 17:54 03/04/25 17:54 03/04/25 17:54 03/04/25 16:00 03/04/25 17:54 Narrative Exam Physical Exam: General: Alert, no acute distress. Skin: Warm, dry, intact, no obvious rash. Head: Normocephalic, atraumatic. Eye: Normal conjunctiva, PERRL. Throat: Oral mucosa moist. No obvious lesions in oropharynx. Cardiovascular: Regular rate, atrial fibrillation noted on Tele monitor, no murmur, +S1/S2. Respiratory: Lungs are clear to auscultation, respirations unlabored, no crackles, no wheezing. Gastrointestinal: Lower abdominal tenderness. Soft, non-distended. No guarding or rebound tenderness. Extremities: No edema, no cyanosis, no clubbing. 2+ radial pulse bilaterally, 2+ posterior tibial pulse bilaterally. Neuro: No focal deficits observed. Conversant, moving all extremities. No overt cerebellar signs/incoordination. Psychiatric: Cooperative, appropriate affect. Objective Labs 03/05/25 04:47 03/05/25 04:47 Labs: Laboratory Results - last 24 hr 03/04/25 05:01 WBC 9.3 RBC 4.25 Hgb 13.8 Hct 42.0 MCV 99 MCH 32.5 MCHC 32.9 RDW Std Deviation 50.2 H Plt Count 266 Neut % (Auto) 62 Lymph % (Auto) 24 [place] % (Auto) 8 Eos % (Auto) 5 Baso % (Auto) 1 Neut # (Auto) 5.8 Lymph # (Auto) 2.2 [place] # (Auto) 0.8 Eos # (Auto) 0.4 Baso # (Auto) 0.1 Immature Gran # (Auto) 0.04 H Absolute Nucleated RBC 0.00 Immature Gran % 0 Nucleated RBC % 0 ESR 5 Sodium 145 Potassium 4.8 D Chloride 106 Carbon Dioxide 25.9 Anion Gap 13 BUN 7 L Creatinine 0.9 Estim Creat Clear Calc 46.5 L eGFR > 60 BUN/Creatinine Ratio 8 L Glucose 80 Calculated Osmolality 285 Calcium 10.0 Corrected Calcium 10.7 H Phosphorus 3.1 Magnesium 1.6 Total Bilirubin 1.3 H AST 24 ALT 11 Alkaline Phosphatase 91 D C-Reactive Prot, Quant 1.1 H Total Protein 5.1 L Albumin 3.1 L D Globulin 2.0 L Albumin/Globulin Ratio 1.6 25-OH Vitamin D Total 30.1 PTH Intact 240.7 H Quality Measures Quality Measures VTE prophylaxis Advance care planning discussed with:: patient Assessment & Plan Assessment Current Active Medications: Generic Name Dose Route Start Last Admin Trade Name Freq PRN Reason Stop Dose Admin Acetaminophen 650 mg 03/03/25 00:24 Acetaminophen 325 Mg Tablet PO 04/02/25 00:23 Q6H PRN PAIN SCALE 1-3 (mild Hydrocodone Bitart/Acetaminophen 1 tab 03/03/25 00:38 Hydrocodone/Apap 5/325 Tablet PO 03/08/25 00:37 Q6HR PRN Low Back Pain Protocol Amlodipine Besylate 2.5 mg 03/03/25 00:45 Amlodipine Besylate 2.5 Mg Tablet PO 04/02/25 00:44 BID MINOR Atorvastatin Calcium 20 mg 03/03/25 21:00 03/03/25 21:24 Atorvastatin Calcium 20 Mg Tablet PO 04/02/25 20:59 20 mg QPM MINOR Administration Bisacodyl 10 mg 03/04/25 17:06 Bisacodyl 10 Mg Supp MI 03/04/25 19:06 X1 PRN Gas pain Carvedilol 12.5 mg 03/03/25 00:45 03/04/25 08:36 Carvedilol 12.5 Mg Tablet PO 04/02/25 00:44 12.5 mg BID MINOR Administration Fentanyl Citrate 50 mcg 03/04/25 17:06 Fentanyl Cit Inj 50 Mcg/Ml Amp 2ml IVP 03/04/25 19:07 Q2M PRN MODERATE SEDATION Furosemide 20 mg 03/03/25 09:00 03/03/25 09:50 Furosemide 20 Mg Tablet PO 04/02/25 08:59 20 mg QDAY MINOR Administration Piperacillin/Tazobactam/Dextrose 3.375 gm in 50 mls @ 100 mls/hr 03/03/25 06:00 03/04/25 05:47 Zosyn IV 03/10/25 05:59 100 mls/hr Q8HR MINOR Administration Sodium Chloride 500 mls @ 20 mls/hr 03/04/25 17:06 03/04/25 17:13 Ns IV 03/05/25 17:05 20 mls/hr .Q24H ONE Administration Lorazepam 0.5 mg 03/03/25 00:38 Lorazepam 0.5 Mg Tablet PO 03/08/25 00:37 Q12H PRN Anxiety Midazolam HCl 2 mg 03/04/25 17:06 Midazolam Inj 1 Mg/Ml Vial 2 Ml IVP 03/04/25 19:07 Q2M PRN Moderate Sedation Ondansetron HCl 4 mg 03/03/25 00:24 Ondansetron Inj 2 Mg/Ml Inj 2 Ml IVP 04/02/25 00:23 Q6H PRN NAUSEA OR VOMITING Protocol Pantoprazole Sodium 40 mg 03/03/25 09:00 03/04/25 08:36 Pantoprazole Inj 40 Mg Vial IVP 04/02/25 08:59 40 mg QDAY MINOR Administration Sennosides 1 tab 03/03/25 00:24 Senna Tablet PO 04/02/25 00:23 QDAY PRN constipation Protocol Plan Assessment Sosa German is an 89-year-old F with a PMH of hypertension who presents today with hematochezia, abdominal pain, and vomiting. Patient was admitted for the work-up and management of GI bleed likely 2/2 severe hemorrhagic colitis, acute cystitis with hematuria, atrial fibrillation, and hypertensive urgency. #GI bleed (likely lower) #likely 2/2 severe hemorrhagic colitis #Hematochezia #Abdominal Pain Initial presentation: nicole hematochezia and bright, red, bloody stool starting today without hematemesis favors a source of bleeding in the lower GI tract This is further supported by CTAP showing a diffuse severe nonspecific colitis pattern (possibly indicative of ulcerative colitis or Crohn's disease) Hgb upon admission was 16.2, coagulation panel WNL Diagnostic Inquiry -Stool Cx -Pending colonoscopy (already on GoLytely) Treatment Plan -IV Protonix 40 mg qD for GI prophylaxis -NPO -Pain control -Monitor Hgb, transfuse if <7 -Strict I's & O's -Holding home blood thinners due to patient's current bleeding risk (aspirin and clopidogrel) #Acute cystitis with hematuria (and pyuria) #Dysuria #Leukocytosis Initial presentation: painful, burning sensation with increased urinary frequency producing orange pee beginning a week ago UA showed turbid, orange urine with 4+ bacteria, 3+ blood, 2+ protein, high RBC 1747, high WBC 787, and positive for leukocyte esterase and nitrite (suggesting UTI) Hgb upon admission was 16.2, coagulation panel WNL Diagnostic Inquiry -UCx showed gram negative rods, BCx follow up Treatment Plan -IV Zosyn 3.375 gm q8HR -Monitor Hgb, transfuse if <7 #Atrial Fibrillation EKG, on machine read, showed atrial fibrillation with aberrant conduction or ventricular premature complexes, possible left ventricular hypertrophy, probable lateral myocardial infarction of indeterminate age, and ST depression possibly suggestive of subendocardial injury However, heart rate upon admission was 73. [id number] score 4: Consider adding anticoagulation for risk of thromboembolic stroke after GI scope studies. Diagnostic Inquiry -No current recommendation Treatment Plan -Restarted home medication: PO Coreg 12.5 mg BID for rate control #Hypertensive urgency BP upon admission was 181/78 and systolic BP has climbed as high as 200+ No signs of end organ damage Patient's home antihypertensive regimen includes: atenolol, amlodipine, carvedilol, furosemide, hydrochlorothiazie, and losartan Diagnostic Inquiry -No current recommendation Treatment Plan -Restarted home medication: PO Coreg 12.5 mg BID -PO Lasix 20 mg qD -ON HOLD while pt is drinking laxative GoLytely in preparation for colonoscopy -Consider starting patient's other home antihypertensives if blood pressure remains uncontrolled #Hypercalcemia Upon admission, corrected calcium was slightly elevated at 10.9 Currently asymptomatic Diagnostic Inquiry -No current recommendation Treatment Plan -Refrain from fluid resuscitation until BP is more adequately controlled -PO Lasix 20 mg qD -ON HOLD while pt is drinking laxative GoLytely in preparation for colonoscopy -started NS 500 mls @ 20 mls/hr IV -ordered PTH level -ordered vitD level #Chronic medical problems #HLD Diagnostic Inquiry -No current recommendation Treatment Plan -Restarted home medications: PO Lipitor 20 mg qHS Hospital Management: Disposition: pending colonoscopy Diet: NPO, pending colonoscopy GI Prophylaxis: Protonix Bowel Prophylaxis: Senna DVT Prophylaxis: SCDs (bleeding risk) CODE STATUS: Full Code This case was discussed with my attending physician, Dr. Powers, and senior resident, Dr. Brown. Juan Carlos Bella MD PGY-1 Attending Provider Attestation/Addendum I, Magnolia Powers DO, attest that I was physically present for the torres portions of the service and evaluated the patient with the resident and I reviewed and discussed the case with the resident and agree with the resident's findings and plans of care as documented above Patient seen and evaluated this AM. Patient states she is feeling improved and denies any further episodes of abdominal pain. Patient has been taking her GoLytely prep. Scheduled for colonoscopy this evening. Patient states she had burning rectal pain that prompted her to come to the ED with blood soaking in her undergarments. No further episodes of bleeding. H/H has otherwise been stable. Patient is also hemodynamically stable. Will f/u with colonoscopy results.
--- NOTE | 2025-03-04 18:00 | SUR.PHASEI ---
Pt. transferred to room 366 via [place] hernandez, no c/o pain or nausea at this time, IV flushed and locked, pt. receiving 2 liters 02 via [place]. Jocy ANN assumed care of pt.
[2025-03-04] MEDS: ATORVASTATIN CALCIUM 20 MG TABLET PO (20:53)
--- NOTE | 2025-03-04 23:53 | PC.NURSE ---
spoke to dr orosco regarding 2200 scheduled zosyn. Pt received last dose at 1840 and is scheduled Q8, however dr orosco states it is okay to give 2200 dose at midnight.
[2025-03-05] VITALS (19 sets, daily range): BP systolic 111–190; BP diastolic 62–103; PULSE 55–86; RESP 10–19; TEMP 36.1–36.6; O2SAT 91–99; BMI 25.7
[2025-03-05] MEDS: PIPER/TAZO 3.375 GM PREMIX 3.375 GM/50 ML BAG IV ×3 (05:31→21:20)
[2025-03-05 06:05] LABS: Basophils # (Auto) 0.1 Thou/mm3 (0.0-0.2); Basophils % (Auto) 1 % (0-2.5); Eosinophils # (Auto) 0.4 Thou/mm3 (0.0-0.5); Eosinophils % (Auto) 5 % (0-10); Hematocrit 39.9 % (36.0-46.0); Hemoglobin 13.6 g/dL (12.0-16.0); Immature Granulocytes Auto 0.03 Thou/mm3 (0.00-0.00); Lymphocytes # (Auto) 2.4 Thou/mm3 (1.0-4.8); Lymphocytes % (Auto) 26 % (10-50); Mean Corpuscular HGB Conc 34.1 g/dl (31.0-37.0); Mean Corpuscular Hemoglobin 33.2 pg (25.0-35.0); Mean Corpuscular Volume 97 fL (80-100); Monocytes # (Auto) 0.8 Thou/mm3 (0.0-0.8); Monocytes % (Auto) 9 % (0-12); Neutrophils # (Auto) 5.5 Thou/mm3 (1.8-7.7); Neutrophils % (Auto) 60 % (37-80); Nucleated Red Blood Cell # 0.00 Thou/mm3 (0.00-0.00); Nucleated Red Blood Cell % 0 /100 WBC (0); Platelet Count 220 Thou/mm3 (140-440); RDW Standard Deviation 50.4 fL (36.4-46.3); Red Blood Count 4.10 Miln/mm3 (4.00-5.20); White Blood Count 9.2 Thou/mm3 (3.6-11.0)
[2025-03-05 06:36] LABS: Alanine Aminotransferase 10 U/L (10-49); Albumin, Serum 3.1 gm/dL (3.4-4.8); Albumin/Globulin Ratio 1.7 (1.2-2.2); Alkaline Phosphatase 76 U/L (46-116); Anion Gap 9 (7-16); Aspartate Amino Transferase 34 U/L (0-34); BUN/Creatinine Ratio 10 Ratio (12-20); Bilirubin,Total 0.9 mg/dL (0.3-1.2); Blood Urea Nitrogen 10 mg/dL (9-23); Calcium 9.4 mg/dL (8.3-10.6); Calcium (Corrected) 10.1 mg/dL (8.5-10.1); Carbon Dioxide 29.0 mMol/L (20.0-31.0); Chloride 104 mMol/L (98-107); Creatinine (Component) 1.0 mg/dL (0.6-1.3); Estimated Creatinine Clearance 41.9 mL/min (>60); Globulin 1.8 gm/dL (2.3-3.5); Glucose 94 mg/dL (74-106); Magnesium 1.5 mg/dL (1.6-2.6); Osmolality,Calculated 282 (275-295); Phosphorous 3.3 mg/dL (2.4-5.1); Potassium 4.1 mMol/L (3.4-5.1); Sodium 142 mMol/L (136-145); Total Protein 4.9 gm/dL (5.7-8.2); eGFR 54 See Note
--- NOTE | 2025-03-05 08:20 | PD.RESDS ---
Planned Discharge Date 03/05/25 DS: Providers Provider Date of admission: 03/03/25 00:19 Primary care physician: Barry Noel MD Admitting Provider: Malvin Arambula MD Attending Provider on Admission: Magnolia Powers DO Consults: 03/02/25 22:25 Consult to Gastroenterology Stat Comment: Bloody diarrhea, colitis Consulting Provider: Jane Valenzuela Attending Provider on DC: RESIDENT Lynette Discharging Provider: RESIDENT Lynette Hospital Course Hospital Course Hospital course: Patient was seen and examined at bedside. No acute events took place overnight. This morning, patient endorses having soft, non-bloody bowel movements. Patient states she has some rectal burning, and some pain during bowel movements. Patient has been NPO in anticipation of colonoscopy later today. She relates that typically her son takes care of her and the presenting symptoms of underwear soaked in blood was noted by her son who is absent in the room. Reports no new complaints. Time Spent with Patient Time attestation: Total time spent providing and/or coordinating discharge services: Exam Vital Signs Temp Pulse Resp BP Pulse Ox O2 Del Method O2 Flow Rate 97.6 F 61 17 118/66 91 L Room Air 2 03/05/25 04:00 03/05/25 04:00 03/05/25 04:00 03/05/25 04:00 03/05/25 04:00 03/05/25 04:00 03/04/25 17:54 Discharge Plan Prescriptions/Referrals Prescriptions/Med Rec: No Action atenolol 50 mg tablet 50 mg PO Q24H Patient Comments: TAKE ONE TABLET BY MOUTH EVERY DAY FOR BLOOD PRESSURE atorvastatin 80 mg tablet 80 mg PO HS Patient Comments: TAKE ONE TABLET BY MOUTH AT BEDTIME FOR CHOLESTEROL atorvastatin 20 mg Tablet 20 mg PO HS carvedilol 12.5 mg Tablet 12.5 mg PO BID Rx Instructions: must administer with a meal/food amlodipine 2.5 mg Tablet 2.5 mg PO QDAY dicyclomine 20 mg Tablet 20 mg PO Q8HR PRN (Reason: nausea/vomiting) aspirin 81 mg Tablet 81 mg PO QDAY docusate sodium 100 mg Tablet 100 mg PO QDAY ergocalciferol (vitamin D2) 50,000 unit Tablet 50,000 unit PO Q7D Referrals: Barry Noel MD [Primary Care Provider] - Patient/Caregiver Discharge Instructions Print Language: Lao
[2025-03-05] MEDS: Magnesium Sulfate 2 GM Ivpb 2 GM/50 ML BAG IV (08:42)
[2025-03-05 09:34] LABS: Cardiac Risk Estimate 4.2 RATIO (3.7-5.6); Cholesterol 142 mg/dL (132-200); HDL Cholesterol 34 mg/dL (40-60); LDL Cholesterol,Calculated 83 mg/dL (0-130); Triglycerides 123 mg/dL (30-150)
[2025-03-05] MEDS: SODIUM CHLORIDE 0.9% 1000 ML 1,000 ML 75 ML IV (11:24)
--- NOTE | 2025-03-05 13:21 | ESPR_ITS ---
Documentation for date of: 03/05/25 Subjective Subjective Interval history: Patient was seen and examined at bedside. No acute events took place overnight. This morning, patient endorses having soft, non-bloody bowel movements. Patient continues to endorse some rectal burning, and some pain during bowel movements. Patient had her colonoscopy completed yesterday; planning to get EGD today. Patient does not have any new complaints or concerns. Denies fever, chest pain, dyspnea, abdominal pain. Exam Vital Signs Temp Pulse Resp BP Pulse Ox O2 Del Method O2 Flow Rate 97.0 F 63 18 136/65 H 95 Room Air 2 03/05/25 12:00 03/05/25 12:00 03/05/25 12:00 03/05/25 12:03/05/25 12:03/05/25 12:03/04/25 17:54 Narrative Exam General: Alert, no acute distress. Skin: Warm, dry, intact, no obvious rash. Head: Normocephalic, atraumatic. Eye: Normal conjunctiva, PERRL. Throat: Oral mucosa moist. No obvious lesions in oropharynx. Cardiovascular: Regular rate, atrial fibrillation noted on Tele monitor, no murmur, +S1/S2. Respiratory: Lungs are clear to auscultation, respirations unlabored, no crackles, no wheezing. Gastrointestinal: Soft, non-tender, non-distended. No guarding or rebound tenderness. Extremities: No edema, no cyanosis, no clubbing. 2+ radial pulse bilaterally, 2+ posterior tibial pulse bilaterally. Neuro: No focal deficits observed. Conversant, moving all extremities. No overt cerebellar signs/incoordination. Psychiatric: Cooperative, appropriate affect. Objective Labs 03/06/25 04:56 03/06/25 04:56 Labs: Laboratory Results - last 24 hr 03/05/25 04:47 WBC 9.2 RBC 4.10 Hgb 13.6 Hct 39.9 MCV 97 MCH 33.2 MCHC 34.1 RDW Std Deviation 50.4 H Plt Count 220 D Neut % (Auto) 60 Lymph % (Auto) 26 [place] % (Auto) 9 Eos % (Auto) 5 Baso % (Auto) 1 Neut # (Auto) 5.5 Lymph # (Auto) 2.4 [place] # (Auto) 0.8 Eos # (Auto) 0.4 Baso # (Auto) 0.1 Immature Gran # (Auto) 0.03 H Absolute Nucleated RBC 0.00 Immature Gran % 0 Nucleated RBC % 0 Sodium 142 Potassium 4.1 D Chloride 104 Carbon Dioxide 29.0 Anion Gap 9 BUN 10 Creatinine 1.0 Estim Creat Clear Calc 41.9 L eGFR 54 L BUN/Creatinine Ratio 10 L Glucose 94 Calculated Osmolality 282 Calcium 9.4 Corrected Calcium 10.1 Phosphorus 3.3 Magnesium 1.5 L Total Bilirubin 0.9 AST 34 ALT 10 Alkaline Phosphatase 76 Total Protein 4.9 L Albumin 3.1 L Globulin 1.8 L Albumin/Globulin Ratio 1.7 Triglycerides 123 Cholesterol 142 LDL Cholesterol, Calc 83 HDL Cholesterol 34 L Cholesterol/HDL Ratio 4.2 Quality Measures Quality Measures VTE prophylaxis Advance care planning discussed with:: patient Assessment & Plan Assessment Current Active Medications: Generic Name Dose Route Start Last Admin Trade Name Freq PRN Reason Stop Dose Admin Acetaminophen 650 mg 03/03/25 00:24 Acetaminophen 325 Mg Tablet PO 04/02/25 00:23 Q6H PRN PAIN SCALE 1-3 (mild Hydrocodone Bitart/Acetaminophen 1 tab 03/03/25 00:38 Hydrocodone/Apap 5/325 Tablet PO 03/08/25 00:37 Q6HR PRN Low Back Pain Protocol Amlodipine Besylate 2.5 mg 03/03/25 00:45 Amlodipine Besylate 2.5 Mg Tablet PO 04/02/25 00:44 BID MINOR Atorvastatin Calcium 20 mg 03/03/25 21:00 03/04/25 20:53 Atorvastatin Calcium 20 Mg Tablet PO 04/02/25 20:59 20 mg QPM MINOR Administration Carvedilol 12.5 mg 03/03/25 00:45 03/05/25 08:39 Carvedilol 12.5 Mg Tablet PO 04/02/25 00:44 12.5 mg BID MINOR Administration Furosemide 20 mg 03/03/25 09:00 03/03/25 09:50 Furosemide 20 Mg Tablet PO 04/02/25 08:59 20 mg QDAY MINOR Administration Piperacillin/Tazobactam/Dextrose 3.375 gm in 50 mls @ 100 mls/hr 03/03/25 06:00 03/05/25 05:31 Zosyn IV 03/10/25 05:59 100 mls/hr Q8HR MINOR Administration Sodium Chloride 1,000 mls @ 75 mls/hr 03/05/25 10:24 03/05/25 11:24 Ns IV 03/05/25 23:43 75 mls/hr .[id number] ONE Administration Lorazepam 0.5 mg 03/03/25 00:38 Lorazepam 0.5 Mg Tablet PO 03/08/25 00:37 Q12H PRN Anxiety Ondansetron HCl 4 mg 03/03/25 00:24 Ondansetron Inj 2 Mg/Ml Inj 2 Ml IVP 04/02/25 00:23 Q6H PRN NAUSEA OR VOMITING Protocol Pantoprazole Sodium 40 mg 03/03/25 09:00 03/05/25 08:39 Pantoprazole Inj 40 Mg Vial IVP 04/02/25 08:59 40 mg QDAY MINOR Administration Sennosides 1 tab 03/03/25 00:24 Senna Tablet PO 04/02/25 00:23 QDAY PRN constipation Protocol Plan Assessment Sosa German is an 89-year-old F with a PMH of hypertension who presents today with hematochezia, abdominal pain, and vomiting. Patient was admitted for the work-up and management of GI bleed likely 2/2 severe hemorrhagic colitis, acute cystitis with hematuria, atrial fibrillation, and hypertensive urgency. #GI bleed (likely lower) #likely 2/2 ischemic colitis #Hematochezia #Abdominal Pain, improving Initial presentation: nicole hematochezia and bright, red, bloody stool starting today without hematemesis favors a source of bleeding in the lower GI tract This is further supported by CTAP showing a diffuse severe nonspecific colitis pattern (possibly indicative of ulcerative colitis or Crohn's disease) Hgb upon admission was 16.2, coagulation panel WNL Diagnostic Inquiry -Stool Cx showed gram positive cx's only without any enteric pathogens; blood cultures negative after 48 hours. -Urine culture 03/02/2025 positive for E coli. -Colonoscopy 03/04/2025 showed hemorrhoids on perianal exam; A patchy area of severly erytematous mucosa found in the sigmoid oclon and in the descending colon. Biopsies take nfor histology. Treatment Plan -Plan for EGD today -Per GI recs 03/04/2025: * Return to office Dr. Valenzuela's office in 2 weeks. * Low fiber diet. * Continue present medications * Consented for EGD with possible biopsy today. * Working diagnosis after colonoscopy is ischemic colitis Recommended the following for outpatient testing: * bilateral carotid US * peripheral Doppler US to look for peripheral vascular disease * cardiology consult for cardiac stress test to look for widespread atherosclerotic cardiovascular disease * lipid panel * put patient on baby aspirin 81 mg once a day enteric-coated -IV Protonix 40 mg qD for GI prophylaxis -NPO -Pain control -Monitor Hgb, transfuse if <7 -Strict I's & O's -Holding home blood thinners due to patient's current bleeding risk (aspirin and clopidogrel) #Acute cystitis with hematuria (and pyuria) #Dysuria #Leukocytosis Initial presentation: painful, burning sensation with increased urinary frequency producing orange pee beginning a week ago UA showed turbid, orange urine with 4+ bacteria, 3+ blood, 2+ protein, high RBC 1747, high WBC 787, and positive for leukocyte esterase and nitrite (suggesting UTI) Hgb upon admission was 16.2, coagulation panel WNL Diagnostic Inquiry -UCx showed gram negative rods, on contact precautions. -BCx no growth after 48 hours. Treatment Plan -IV Zosyn 3.375 gm q8HR -Monitor Hgb, transfuse if <7 #Atrial Fibrillation EKG, on machine read, showed atrial fibrillation with aberrant conduction or ventricular premature complexes, possible left ventricular hypertrophy, probable lateral myocardial infarction of indeterminate age, and ST depression possibly suggestive of subendocardial injury However, heart rate upon admission was 73. [id number] score 4: Consider adding anticoagulation for risk of thromboembolic stroke after GI scope studies. Diagnostic Inquiry -No current recommendation Treatment Plan -Restarted home medication: PO Coreg 12.5 mg BID for rate control #Hypertensive urgency BP upon admission was 181/78 and systolic BP has climbed as high as 200+ No signs of end organ damage Patient's home antihypertensive regimen includes: atenolol, amlodipine, carvedilol, furosemide, hydrochlorothiazie, and losartan Diagnostic Inquiry -No current recommendation Treatment Plan -Restarted home medication: PO Coreg 12.5 mg BID -PO Lasix 20 mg qD -ON HOLD while pt is drinking laxative GoLytely in preparation for colonoscopy -Consider starting patient's other home antihypertensives if blood pressure remains uncontrolled #Hypercalcemia Upon admission, corrected calcium was slightly elevated at 10.9 Currently asymptomatic Diagnostic Inquiry -PTH elevated 240.7 -vitD wnl Treatment Plan -Refrain from fluid resuscitation until BP is more adequately controlled -PO Lasix 20 mg qD -ON HOLD while pt is drinking laxative GoLytely in preparation for colonoscopy -started NS 1L @ 75 mls/hr IV #Chronic medical problems #HLD Diagnostic Inquiry -No current recommendation Treatment Plan -Restarted home medications: PO Lipitor 20 mg qHS Hospital Management: Disposition: pending EGD Diet: NPO, pending EGD GI Prophylaxis: Protonix Bowel Prophylaxis: Senna DVT Prophylaxis: SCDs (bleeding risk) CODE STATUS: Full Code This case was discussed with my attending physician, Dr. Powers, and senior resident, Dr. Brown. Juan Carlos Bella MD PGY-1 Attending Provider Attestation/Addendum I, Magnolia Powers DO, attest that I was physically present for the torres portions of the service and evaluated the patient with the resident and I reviewed and discussed the case with the resident and agree with the resident's findings and plans of care as documented above Patient seen and evaluated this AM. Patient states that she is sleepy, but has no active complaints at this time. Pending endoscopy today. Patient underwent colonoscopy yesterday during which she was found to have several patches of erythema in her sigmoid and descending colon, concerning for ischemic colitis. Explained to patient findings of colonoscopy and need for further workup outpatient by vascular or cardiology. Will need aspirin on discharge. Patient is concerned that the aspirin may cause significant bruising. However, she is willing to start the ASA and will f/u outpatient with her PCP if she wishes to stop aspirin. Will need doppler US of carotids, b/l LE to r/o PAD, stress test outpatient.
--- NOTE | 2025-03-05 14:48 | PC.SS ---
Addendum entered by Rere Resendiz 03/05/25 15:07: SNF referral submitted via [employer] Original Note: SS spoke to pt son Aidan in regards to DC plan. Original plan was for pt to return home, but pt is requesting SNF. Per Aidan pt was at [facility] for about 5 weeks. Aidan reports being in contact with Madison at [facility] and shes willing to accept her if there are beds at the time of DC. SS to submit referral via [employer].
[2025-03-05] MEDS: ATORVASTATIN CALCIUM 20 MG TABLET PO (20:36)
--- NOTE | 2025-03-05 20:43 | EKG_ITS ---
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: COLEMAN : 1935 Requested By: Shahram Montes De Oca Order Number: [id number] Reading MD: Shahram Montes De Oca Measurements Intervals [place] Rate: 69 P: VT: QRS: 24 QRSD: 112 T: 204 QT: 412 QTc: 443 Interpretive Statements ATRIAL FIBRILLATION ANTEROSEPTAL MYOCARDIAL INFARCTION , OF INDETERMINATE AGE ST DEVIATION AND MODERATE T-WAVE ABNORMALITY, CONSIDER LATERAL ISCHEMIA Compared to ECG 03/02/2025 16:04:31 T-wave abnormality now present Possible ischemia now present Ventricular premature complex(es) no longer present Aberrant conduction of supraventricular beat(s) no longer present ST (T wave) deviation no longer present Myocardial infarct finding still present /store/S0/[id number]/ecg/[id number].pdf
[2025-03-05 23:39] LABS: Troponin I 0.087 ng/mL (0.0-0.045)
[2025-03-06] VITALS (7 sets, daily range): BP systolic 125–146; BP diastolic 68–85; PULSE 55–80; RESP 16–19; TEMP 36.2–36.8; O2SAT 94–98
[2025-03-06] MEDS: PIPER/TAZO 3.375 GM PREMIX 3.375 GM/50 ML BAG IV ×2 (05:42→13:24)
[2025-03-06 05:51] LABS: Basophils # (Auto) 0.1 Thou/mm3 (0.0-0.2); Basophils % (Auto) 1 % (0-2.5); Eosinophils # (Auto) 0.5 Thou/mm3 (0.0-0.5); Eosinophils % (Auto) 6 % (0-10); Hematocrit 40.0 % (36.0-46.0); Hemoglobin 13.1 g/dL (12.0-16.0); Immature Granulocytes Auto 0.04 Thou/mm3 (0.00-0.00); Lymphocytes # (Auto) 2.3 Thou/mm3 (1.0-4.8); Lymphocytes % (Auto) 24 % (10-50); Mean Corpuscular HGB Conc 32.8 g/dl (31.0-37.0); Mean Corpuscular Hemoglobin 32.8 pg (25.0-35.0); Mean Corpuscular Volume 100 fL (80-100); Monocytes # (Auto) 0.8 Thou/mm3 (0.0-0.8); Monocytes % (Auto) 8 % (0-12); Neutrophils # (Auto) 5.8 Thou/mm3 (1.8-7.7); Neutrophils % (Auto) 61 % (37-80); Nucleated Red Blood Cell # 0.00 Thou/mm3 (0.00-0.00); Nucleated Red Blood Cell % 0 /100 WBC (0); Platelet Count 297 Thou/mm3 (140-440); RDW Standard Deviation 51.8 fL (36.4-46.3); Red Blood Count 4.00 Miln/mm3 (4.00-5.20); White Blood Count 9.5 Thou/mm3 (3.6-11.0)
[2025-03-06 06:35] LABS: Alanine Aminotransferase < 7 U/L (10-49); Albumin, Serum 3.0 gm/dL (3.4-4.8); Albumin/Globulin Ratio 1.9 (1.2-2.2); Alkaline Phosphatase 86 U/L (46-116); Anion Gap 11 (7-16); Aspartate Amino Transferase 16 U/L (0-34); BUN/Creatinine Ratio 11 Ratio (12-20); Bilirubin,Total 0.7 mg/dL (0.3-1.2); Blood Urea Nitrogen 10 mg/dL (9-23); Calcium 9.3 mg/dL (8.3-10.6); Calcium (Corrected) 10.1 mg/dL (8.5-10.1); Carbon Dioxide 28.4 mMol/L (20.0-31.0); Chloride 106 mMol/L (98-107); Creatinine (Component) 0.9 mg/dL (0.6-1.3); Estimated Creatinine Clearance 41.0 mL/min (>60); Globulin 1.6 gm/dL (2.3-3.5); Glucose 125 mg/dL (74-106); Magnesium 2.2 mg/dL (1.6-2.6); Osmolality,Calculated 288 (275-295); Phosphorous 2.9 mg/dL (2.4-5.1); Potassium 3.5 mMol/L (3.4-5.1); Sodium 145 mMol/L (136-145); Total Protein 4.6 gm/dL (5.7-8.2); eGFR > 60 See Note
[2025-03-06 06:36] LABS: Troponin I 0.074 ng/mL (0.0-0.045)
[2025-03-06 12:49] LABS: Troponin I 0.063 ng/mL (0.0-0.045)
--- NOTE | 2025-03-06 14:56 | PC.SS ---
NICO completed and downloaded, SS file exchanged to [facility]
--- NOTE | 2025-03-06 14:56 | PC.RT ---
SS spoke to son Aidan, who stated he can transport pt to [facility]. [facility] aware and can accept today, packet prepared and left with chart at station
--- NOTE | 2025-03-06 15:22 | PC.SS ---
SS met with pt and Son at bedside to discuss concerns with DC. They have expressed that pt lives alone and she is afraid of not being able to care for herself. SS explained process for SNF being pt is a managed Medicare and the need for auth. SS explained if auth is denied she will have to be DC home with HH and the rollator walker. Pt and Son are in agreement with plan. SS updated Dr. Lee
--- NOTE | 2025-03-06 15:39 | PC.NURSE ---
Report given to Precious at [facility] regarding pt.
--- NOTE | 2025-03-06 16:02 | ESDS_ITS ---
<Statement entered by Magnolia Powers DO - 03/06/25 17:04> I, Magnolia Powers DO, attest that I was physically present for the torres portions of the service and evaluated the patient with the resident and I reviewed and discussed the case with the resident and agree with the resident's findings and plans of care as documented above <Statement entered by Juliet Ramires MD - 03/06/25 16:23> Patient was seen and examined at bedside. EGD was done which showed patient has esophageal stenosis which undergone dilatation, found to have mucosal laceration , Dr. Valenzuela recommended patient to continue on Protonix and follow-up in outpatient settings for the biopsy. Patient found to have patchy erythema in the colon mucosa most likely secondary to ischemic colitis. Patient will need to follow-up up with a bi data modeler for further assessment for atherosclerosis. Patient was cleared for discharge and was given the instructions as below. - Patient's plan and care discussed with my attending, Dr. Priya Ramires MD Internal Medicine PGY-3 Planned Discharge Date 03/06/25 DS: Providers Provider Date of admission: 03/03/25 00:19 Primary care physician: Barry Noel MD Admitting Provider: Malvin Arambula MD Attending Provider on Admission: Magnolia Powers DO Consults: 03/02/25 22:25 Consult to Gastroenterology Stat Comment: Bloody diarrhea, colitis Consulting Provider: Jane Valenzuela Attending Provider on DC: Magnolia Powers DO Discharging Provider: Magnolia Powers DO DS: Diagnosis Problem List Completed Was Problem List Reviewed/Reconciled?: Yes Hospital Course Hospital Course Hospital course: Sosa German is an 89-year-old F with a PMH of hypertension who presents today with hematochezia, abdominal pain, and vomiting. Patient was admitted at [facility] for the work-up and management of GI bleed likely 2/2 ischemic colitis. Patient had a colonoscopy and EGD done with GI Dr. Valenzuela. Colonoscopy findings were found to be hemorrhoids and erythematous mucosa in sigmoid colon and in the descending colon which were biopsied. EGD findings found to show esophagitis and esophageal stenosis which was dilated, biopsies of esophagus taken; gastritis with gastric biopsies taken. Patient was discharged in stable condition to SNF. Discharge instructions below. Patient has history of chronic A-fib, but does not take any blood thinners at home. Explained to patient the risk of bleeding with the use of anticoagulation. Patient verbalized understanding and is undecided whether or not she wants to start anticoagulation. Patient can start Eliquis in 1 week due to recent GI bleed. Patient has been cleared by GI to start anticoagulation. Patient will need to follow-up with cardiology given need for further vascular workup given ischemic colitis. Imaging Findings: CTA AP: Diffuse severe nonspecific colitis pattern, differential would include ulcerative colitis, Crohn's disease Discharge Instructions: Follow-up with your primary care provider within 1 week from discharge Follow-up with the corporate security officer Dr. Valenzuela within 1 week from discharge to follow-up on the pathology reports from the biopsy that was taken during the endoscopies. Avoid spicy food, NSAIDs such as ibuprofen or Aleve. You need to follow-up with a bi data modeler as you have been found to have something called ischemic colitis that could be secondary to widespread narrowing of your blood vessels including your heart. Continue oral antibiotics Macrobid for 5 more days 4 times a day per mouth We recommend you start on Eliquis after one week as you have a condition called A-fib which requires a blood thinner to prevent strokes. When you start on blood thinner please monitor for any signs or symptoms of bleed either through the stool or vomiting or under the skin or nosebleed. Stop the med if you experience the symptoms and report to your healthcare provider. In case of emergency please return to the ED as soon as possible We held your vitamin D as your calcium level is in the high normal range, also you need to follow-up with an delinquency counselor regarding your elevated calcium levels. Admission Diagnosis #GI bleed (likely lower) #likely 2/2 ischemic colitis #Hematochezia #Abdominal Pain #Acute cystitis with hematuria (and pyuria) #Dysuria #Leukocytosis #Atrial Fibrillation #Hypertensive urgency #Hypercalcemia #HLD Patient plan of care was discussed with the attending physician, Dr. Priya Bella MD PGY-1 Time Spent with Patient Time attestation: Total time spent providing and/or coordinating discharge services: Time spent: Greater than 30 minutes Exam Vital Signs Temp Pulse Resp BP Pulse Ox O2 Del Method O2 Flow Rate 98.0 F 72 17 146/73 H 94 L Nasal Cannula 2 03/06/25 15:15 03/06/25 15:15 03/06/25 15:15 03/06/25 15:15 03/06/25 15:15 03/06/25 15:15 03/06/25 15:15 Narrative Exam General: Alert, no acute distress. Skin: Warm, dry, intact, no obvious rash. Head: Normocephalic, atraumatic. Eye: Normal conjunctiva, PERRL. Throat: Oral mucosa moist. No obvious lesions in oropharynx. Cardiovascular: Regular rate, atrial fibrillation noted on Tele monitor, no murmur, +S1/S2. Respiratory: Lungs are clear to auscultation, respirations unlabored, no crackles, no wheezing. Gastrointestinal: Soft, non-tender, non-distended. No guarding or rebound tenderness. Extremities: No edema, no cyanosis, no clubbing. 2+ radial pulse bilaterally, 2+ posterior tibial pulse bilaterally. Neuro: No focal deficits observed. Conversant, moving all extremities. No overt cerebellar signs/incoordination. Psychiatric: Cooperative, appropriate affect. Discharge Plan Plan Patient Disposition: Xfer [facility] Fac (SNF) Patient condition on transfer: Benefits outweigh risks Care Plan Goals: Follow-up with your primary care provider within 1 week from discharge Follow-up with the corporate security officer Dr. Valenzuela within 1 week from discharge to follow-up on the pathology reports from the biopsy that was taken during the endoscopies. Avoid spicy food, NSAIDs such as ibuprofen or Aleve. You need to follow-up with a bi data modeler as you have been found to have something called ischemic colitis that could be secondary to widespread narrowing of your blood vessels including your heart. Continue oral antibiotics Macrobid for 5 more days 4 times a day per mouth We recommend you start on Eliquis after one week as you have a condition called A-fib which requires a blood thinner to prevent strokes. When you start on blood thinner please monitor for any signs or symptoms of bleed either through the stool or vomiting or under the skin or nosebleed. Stop the med if you experience the symptoms and report to your healthcare provider. In case of emergency please return to the ED as soon as possible We held your vitamin D as your calcium level is in the high normal range, also you need to follow-up with an delinquency counselor regarding your elevated calcium levels. Prescriptions/Referrals Prescriptions/Med Rec: New nitrofurantoin monohyd/m-cryst [Macrobid] 100 mg capsule 100 mg PO Q6H 5 Days Qty: 20 0RF Rx Instructions: must administer with a meal/food carvedilol 12.5 mg Tablet 12.5 mg PO BID 7 Days Qty: 14 0RF Continued atenolol 50 mg tablet 50 mg PO Q24H Patient Comments: TAKE ONE TABLET BY MOUTH EVERY DAY FOR BLOOD PRESSURE atorvastatin 80 mg tablet 80 mg PO HS Patient Comments: TAKE ONE TABLET BY MOUTH AT BEDTIME FOR CHOLESTEROL amlodipine 2.5 mg Tablet 2.5 mg PO QDAY dicyclomine 20 mg Tablet 20 mg PO Q8HR PRN (Reason: nausea/vomiting) aspirin 81 mg Tablet 81 mg PO QDAY Discontinued atorvastatin 20 mg Tablet 20 mg PO HS carvedilol 12.5 mg Tablet 12.5 mg PO BID Rx Instructions: must administer with a meal/food docusate sodium 100 mg Tablet 100 mg PO QDAY ergocalciferol (vitamin D2) 50,000 unit Tablet 50,000 unit PO Q7D Referrals: Barry Noel MD [Primary Care Provider] - Patient/Caregiver Discharge Instructions Education Materials: Colonoscopy, Upper GI Endoscopy, Urinary Tract Infections in Women, Stroke Prevent Live W Atrial Fib, Understanding Atrial Fibrillation Print Language: Malaysian Stand Alone Forms: Nathalia Award Info., Patient Portal Info Letter Discharge Order Discharge Orders: Discharge (Routine); Ordered 03/06/25 Ordered By: Juliet Ramires Quality Discharge Quality Measures VTE prophylaxis
--- NOTE | 2025-03-06 16:58 | ESPR_ITS ---
Documentation for date of: 03/06/25 Subjective Subjective Interval history: Late entry for the note hemoglobin hematocrit 13.1 and 40.0 Discharge planning discussed with internal medicine team It is okay to discharge patient home to be followed by the PCP Upper endoscopy showed gastritis and esophagitis Colonoscopy showed erythema of the left colon biopsies pending Internal hemorrhoids Exam Vital Signs Temp Pulse Resp BP Pulse Ox O2 Del Method O2 Flow Rate 98.0 F 72 17 146/73 H 94 L Nasal Cannula 2 03/06/25 15:15 03/06/25 15:15 03/06/25 15:15 03/06/25 15:15 03/06/25 15:15 03/06/25 15:15 03/06/25 15:15 Objective Labs 03/06/25 04:56 03/06/25 04:56 Labs: Laboratory Results - last 24 hr 03/05/25 03/06/25 03/06/25 22:54 04:56 11:50 WBC 9.5 RBC 4.00 Hgb 13.1 Hct 40.0 MCV 100 MCH 32.8 MCHC 32.8 RDW Std Deviation 51.8 H Plt Count 297 D Neut % (Auto) 61 Lymph % (Auto) 24 [place] % (Auto) 8 Eos % (Auto) 6 Baso % (Auto) 1 Neut # (Auto) 5.8 Lymph # (Auto) 2.3 [place] # (Auto) 0.8 Eos # (Auto) 0.5 Baso # (Auto) 0.1 Immature Gran # (Auto) 0.04 H Absolute Nucleated RBC 0.00 Immature Gran % 0 Nucleated RBC % 0 Sodium 145 Potassium 3.5 D Chloride 106 Carbon Dioxide 28.4 Anion Gap 11 BUN 10 Creatinine 0.9 Estim Creat Clear Calc 41.0 L eGFR > 60 BUN/Creatinine Ratio 11 L Glucose 125 H Calculated Osmolality 288 Calcium 9.3 Corrected Calcium 10.1 Phosphorus 2.9 Magnesium 2.2 Total Bilirubin 0.7 AST 16 ALT < 7 L Alkaline Phosphatase 86 Troponin I 0.087 H* 0.074 H* 0.063 H* Total Protein 4.6 L Albumin 3.0 L Globulin 1.6 L Albumin/Globulin Ratio 1.9 Impressions Impression: Erythema left colon Internal hemorrhoids Gastritis Okay to discharge patient home to be followed by the PCP Assessment & Plan A&P Narrative # Hematochezia # Abnormal CT scan of the abdomen pelvis showing diffuse colitis Differential diagnoses include infectious versus inflammatory colitis possibility of ischemic colitis as well Plan Clear liquid diet GoLytely prep Consent for colonoscopy with possible biopsy possible therapeutic intervention under intravenous moderate sedation Stool for culture and sensitivity Stool for C. difficile # Nausea vomiting of uncertain etiology Will monitor the symptoms Before deciding for an upper endoscopy prior to discharge Other medical problems include Essential hypertension Hyperlipidemia Thank you very much for the opportunity to participate in the care of this patient Time Spent With Patient Time: Total time spent is greater than 50% in coordination of care (as documented) at patient's floor/unit and/or counseling patient:
== END 2025-03-06 15:35 | disposition skilled nursing facility (03) | DRG 392 ==
LOC: SERX 22:40 → SERHOLD 03-03 00:57 → S3NX 03-03 08:00
PROVIDERS: Nurse Practitioner Family; Specialist; Admitting Provider Internal Medicine; Emergency Provider Emergency Medicine; PCP Internal Medicine; Visit Provider Internal Medicine
PROC: 0DJD8ZZ Inspection of Lower Intestinal Tract, Via Natural or Artificial Opening Endoscopic (ICD-10-PCS; CPT 45378; principal; 2025-03-04 19:30)
PROC: 0DB48ZX Excision of Esophagogastric Junction, Via Natural or Artificial Opening Endoscopic, Diagnostic (ICD-10-PCS; CPT 43239; principal; 2025-03-05 15:30)
DX: K52.9 Noninfective gastroenteritis and colitis, unspecified (principal); N30.01 Acute cystitis with hematuria; I48.20 Chronic atrial fibrillation, unspecified; K55.9 Vascular disorder of intestine, unspecified; I10 Essential (primary) hypertension; I16.0 Hypertensive urgency; E83.52 Hypercalcemia; E78.5 Hyperlipidemia, unspecified; K22.2 Esophageal obstruction; K20.90 Esophagitis, unspecified without bleeding; K29.70 Gastritis, unspecified, without bleeding; K64.8 Other hemorrhoids; Z79.82 Long term (current) use of aspirin; Z79.899 Other long term (current) drug therapy; Z90.710 Acquired absence of both cervix and uterus
CPT/HCPCS: 36415; 74174; 80053; 80061; 81001; 82270; 82306; 83735; 83970; 84100; 84484; 85025; 85610; 85652; 85730; 86140; 86850; 86900; 86901; 87015; 87040; 87045; 87046; 87077; 87086; 87186; 87493; 87899; 93005; 93225; 96365; 96366; 96375; 99284; A4649; C1726; J0744; J2250; J2470; J2543; J3010; J3475; J3490; J7030; J7120; J7999; Q9967; A9270; J1836

== ENCOUNTER 2025-04-01 10:37 | Inpatient (IN) | payer MEDICARE, BC, SELFPAY ==
[2025-04-01] MEDS: SUCCINYLCHOLINE INJ 20 MG/ML VIAL 10 ML 100 MG IV (10:44)
[2025-04-01] MEDS: ETOMIDATE INJ 2 MG/ML VIAL 10 ML 15 MG IV (10:44)
[2025-04-01] MEDS: SODIUM CHLORIDE 0.9% 1000 ML 1,000 ML 999 ML IV ×2 (10:46→11:14)
[2025-04-01 10:49] VITALS: BP 151/69; PULSE 112; RESP 18; TEMP 38.1; O2SAT 97
[2025-04-01 10:57] VITALS: PULSE 120; O2SAT 90; BMI 25.0
[2025-04-01 11:00] VITALS: BP 166/125; PULSE 108; RESP 28; O2SAT 96
--- NOTE | 2025-04-01 11:00 | PC.NURSE ---
unable to complete NIHSS due to pts condition.
--- NOTE | 2025-04-01 11:05 | XR_ITS ---
Examination: CT brain head without contrast. 2-D sagittal coronal reconstructions Date and time of exam:April 01, 2025, 1146 hours INDICATIONS: Altered mental status today CTDI: vol (mGy):46.1 DLP: (mGycm):941 Technique: Multiple CT axial sections of the brain have been obtained, 5 mm slice thickness. Contrast has not been administered. 2-D sagittal, coronal reconstructions have been obtained Low dose protocols were performed. One or more of the following dose reduction techniques were used; automated exposure control, adjustment of the mA and/or KV according to patient size, use of iterative reconstruction technique. 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
--- NOTE | 2025-04-01 11:05 | XR_ITS ---
Examination: AP chest single view TECHNIQUE: AP portable supine chest single view Date and time: April 01, 2025, 11:15 AM Comparison February 10, 2023 INDICATIONS: Hypoxic respiratory failure postintubation FINDINGS: Mild enlargement cardiac contour. Prominent vascular congestion. No lobar pneumonia. Possible retrocardiac gastric hernia. Endotracheal tube tip 4.7 cm above vince. Orogastric tube sidehole at the GE junction IMPRESSION: Prominent vascular congestion Advance the orogastric tube 7 cm
[2025-04-01] MEDS: PROPOFOL 1,000 MG IVPB 1,000 MG/100 ML VIAL 2.177 MG IV (11:06)
[2025-04-01] MEDS: PROPOFOL INJ 10 MG/ML VIAL 20 ML 60 MG IV (11:10)
[2025-04-01 11:14] LABS: Base Excess -5 (-3-3); HCO3 23 mEq/L (20-26); Inspired Oxygen, FIO2 100 %; O2 Saturation 100 % (91-98); PCO2 52 mmHg (32.0-48.0); PO2 219 mmHg (83-108); pH, Arterial 7.25 (7.35-7.45)
[2025-04-01] MEDS: PIPER/TAZO 3.375 GM PREMIX 3.375 GM/50 ML BAG IV (11:15)
[2025-04-01 11:16] LABS: Allen Test Performed/OK; Puncture Site Right Radial
[2025-04-01 11:33] LABS: Lactate (Lactic Acid) 4.8 mMol/L (0.4-2.0)
[2025-04-01 12:00] VITALS: BP 119/65; PULSE 92; RESP 19; TEMP 37.6; O2SAT 91
[2025-04-01 12:01] VITALS: BP 119/65; PULSE 93; RESP 22; TEMP 37.6; O2SAT 95
[2025-04-01] MEDS: ACETAMINOPHEN IVPB 1,000 MG/100 ML VIAL 250 MG IV (12:13)
--- NOTE | 2025-04-01 12:13 | PD.EDAMS ---
Altered Mental Status RME/HPI General Chief Complaint: Altered Mental Status Stated Complaint: UNRESPONSIVE Arrival date/time: 04/01/25 10:37 Limitations: no limitations RME / HPI RME / HPI narrative: 89 year old female with history of atrial fibrillation, hypertension, previous GI bleed presents to the ED BIBA from home for altered mental status today. Per medics, caregiver on scene reported finding the patient altered at 10:00 AM. Last known well unknown. No further history obtainable. Medics reported on scene the son requested everything to be performed. Related Data Home Medications ?Medication ?Instructions ?Recorded ?Confirmed amlodipine 2.5 mg tablet 2.5 mg PO QDAY 02/11/23 03/04/25 aspirin 81 mg tablet 81 mg PO QDAY 02/11/23 03/04/25 dicyclomine 20 mg tablet 20 mg PO Q8HR PRN nausea/vomiting 02/11/23 03/04/25 atenolol 50 mg tablet 50 mg PO Q24H 03/03/25 03/03/25 atorvastatin 80 mg tablet 80 mg PO HS 03/03/25 03/03/25 Allergies Allergy/AdvReac Type Severity Reaction Status Date / Time No Known Allergies Allergy Verified 03/02/25 15:46 Review of Systems Review of Systems ROS Unobtainable: unobtainable due to mental status Past Medical History Past Medical History CARDIAC: Positive Cardiac Disorders, Hypercholesterolemia and Hypertension Social History SMOKING STATUS: Unknown if ever smoked ED Exam General Limitations: Present no limitations General appearance: Present other (Patient arrived altered, AOx0, no response to pain or verbal stimuli, spontaneous respirations that are slow and sparse) Head Head exam: Present atraumatic and normocephalic Eye Eye exam: Present other (pupils are 2mm and nonreactive to light, no spontaneous movement of eyes) ENT ENT exam: Present mucous membranes moist and other (dry blood around lips) Neck Neck exam: Present normal inspection Chest Chest inspection: Present normal inspection and symmetric chest wall rise Respiratory Respiratory exam: Present other (spontaneous respirations that are slow and sparse) Cardiovascular Cardiovascular exam: Present other (distant heart sounds, irregularly irregular consistent with rapid atrial fibrillation on telemetry, rate 140s, ) Abdominal Exam Abdominal exam: Present soft and normal bowel sounds; Absent distention Extremities Exam Extremities exam: Present other (left arm with abrasion measuring 1.5cm x 3cm that looked like excoriated skin and the surrounding skin that was not peeled off appears dry); Absent pedal edema Neurological Exam Neurological exam: Present other (Patient arrived altered, AOx0, no response to pain or verbal stimuli ) Psychiatric Psychiatric exam: Present normal affect and normal mood Skin Skin exam: Present warm, dry, intact and normal color Course Quality Measures Suspected type of Stroke: Acute Ischemic Last known well (date): 03/31/25 Last known well (time): 14:00 Tenecteplase given: Reason(s) TPA not given: Outside the time window not given stroke and Current suspected stage: sepsis Possible source: unknown Blood cultures ordered: completed in ED Antibiotic ordered: Yes Pertinent labs: 04/01/25 11:09 Lactic Acid 4.8 H* mMol/L (0.4-2.0) sepsis Orders Category Date Time Status Bedside Blood Glucose NOW Care 04/01/25 11:49 Completed Bedside Blood Glucose NOW Care 04/01/25 12:23 Completed Tilt Tray Driver NOW Care 04/01/25 11:50 Active Tilt Tray Driver NOW Care 04/01/25 12:23 Active Continuous Pulse Oximetry NOW Care 04/01/25 12:23 Completed Continuous Pulse Oximetry QSHIFT Care 04/01/25 11:49 Completed EKG (ED ONLY) *Do not use* NOW Care 04/01/25 11:02 Completed Insert IV NOW Care 04/01/25 12:23 Completed Intubation NOW Care 04/01/25 10:40 Completed NIH Stroke Scale now Care 04/01/25 12:23 Active NPO NOW Care 04/01/25 12:23 Active Neuro Check Q15MIN Care 04/01/25 12:23 Active Nurse Swallow Screen x1 Care 04/01/25 12:23 Active Consult to Neurology / Tele-Neurology Routine Cons 04/01/25 12:[address] angio stroke protocol Stat Exams 04/01/25 12:[address] head/brain wo con Stat Exams 04/01/25 11:[address] stroke protocol Stat Exams 04/01/25 12:23 Ordered EKG (ED Only) Stat Exams 04/01/25 11:01 Ordered XR chest 1V post procedure Stat Exams 04/01/25 11:05 Completed ABG [Arterial Blood Gas] Stat Lab 04/01/25 11:00 Stop Req ABG [Arterial Blood Gas] Stat Lab 04/01/25 11:10 Completed Acetaminophen Stat Lab 04/01/25 12:19 Completed Alcohol, Blood Medical Stat Lab 04/01/25 12:19 Completed B-Type Natriuretic Peptide Stat Lab 04/01/25 12:23 Ordered Blood Culture (Lab) Stat Lab 04/01/25 11:09 Received Blood Culture (Lab) Stat Lab 04/01/25 11:50 Ordered CBC Stat Lab 04/01/25 12:19 Completed CBC Stat Lab 04/01/25 12:23 Ordered Comprehensive Metabolic Panel Stat Lab 04/01/25 12:19 Completed Drug Screen,Urine Stat Lab 04/01/25 12:52 Ordered Lactate (Lactic Acid) Stat Lab 04/01/25 11:09 Results Magnesium Stat Lab 04/01/25 12:19 Completed Magnesium Stat Lab 04/01/25 12:23 Ordered Partial Thromboplastin Time Stat Lab 04/01/25 12:19 Completed Prothrombin Time with INR Stat Lab 04/01/25 12:19 Completed Salicylate Stat Lab 04/01/25 12:19 Completed Sputum Culture and Gram Stain Stat Lab 04/01/25 11:10 Received Troponin I Stat Lab 04/01/25 12:19 Completed Troponin I Stat Lab 04/01/25 12:23 Ordered Urinalysis Stat Lab 04/01/25 12:52 Ordered Urinalysis, C/S if Indicated Stat Lab 04/01/25 12:52 Ordered Urine Culture Stat Lab 04/01/25 12:52 Ordered Acetaminophen Ivpb [Ofirmev Inj] Med 04/01/25 11:52 Discontinued 1,000 mg in 100 ml IV X1 Etomidate Inj [Amidate Inj] Med 04/01/25 10:39 Discontinued 15 mg IV X1 ONE Etomidate Inj [Amidate Inj] Med 04/01/25 10:40 Discontinued 20 mg .ROUTE .STK-MED ONE Morphine IV Drip 100mg/100ml [Morphine Sulfate IV Drip Med 04/01/25 12:53 Active 100mg/100ml] 100 ml IV 2 mg/hr Morphine Inj Med 04/01/25 12:53 Discontinued 4 mg IVP X1 ONE Pantoprazole Inj [Protonix Inj] Med 04/01/25 11:00 Discontinued 80 mg IVP X1 ONE Piper/Tazo 3.375 gm Premix [Zosyn] Med 04/01/25 11:08 Discontinued 3.375 gm in 50 ml IV X1 Propofol 1,000 mg Ivpb [Diprivan Ivpb] Med 04/01/25 11:01 Discontinued 1,000 mg in 100 ml IV .STK-MED Propofol 1,000 mg Ivpb [Diprivan Ivpb] Med 04/01/25 10:59 Active 1,000 mg in 100 ml IV 5 mcg/kg/min Propofol Inj [Diprivan Inj] Med 04/01/25 10:59 Discontinued 60 mg IV X1 ONE Sodium Chloride 0.9% 1000 ml [Ns] 1,000 ml Med 04/01/25 11:01 Discontinued IV 100 mls/hr Sodium Chloride 0.9% 1000 ml [Ns] 1,000 ml Med 04/01/25 10:43 Discontinued IV 999 mls/hr Sodium Chloride 0.9% 1000 ml [Ns] 1,000 ml Med 04/01/25 11:10 Discontinued IV 999 mls/hr Succinylcholine Inj [Anectine Inj] Med 04/01/25 10:44 Discontinued 100 mg IV X1 ONE Succinylcholine Inj [Anectine Inj] Med 04/01/25 10:41 Discontinued 200 mg .ROUTE .STK-MED ONE Mechanical [Volume Ventilator] Stat RT 04/01/25 Active Vital Signs Vital signs: Vital Signs Temperature 100.6 F H 04/01/25 10:49 Pulse Rate 112 H 04/01/25 10:49 Respiratory Rate 18 04/01/25 10:49 Blood Pressure 151/69 H 04/01/25 10:49 Pulse Oximetry (%) 97 04/01/25 10:49 Oxygen Delivery Method Mechanical Ventilation 04/01/25 10:49 PROCEDURES: Intubation Time out performed: Yes sedative: Etomidate Mg Given: 15 paralytic: Succinylcholine Mg Given: 100 Laryngoscope: fiber optic video scope Assist Device Used: fiber optic device ET Tube Size: 7.5 ET Tube Uncuffed: No Tube Secured Depth (cm): 26 Tube Secured Location: other (gum) Tube Placement Confirmation: visualized tube passing through cords, equal breath sounds bilaterally, no breath sounds over epigastrium and confirmation by capnometry Patient Tolerated Procedure: well and no complications Intubation Complications: none Altered Mental Status MDM Narrative MDM Narrative:: 1047: Patient intubated, see procedure note. 1114: Patient given 60mg IVP of Propofol. I reviewed CXR performed at bedside and the ET tube was pulled back 2cm. 1213: Dr. Menezes relayed head CT results. 1215: I spoke with patients son. Reports the patient was last known well at 2pm yesterday (03/31). Additionally reports patient is DNR/comfort measures. 1245: I spoke with patients son, teleneurologist Dr. Salcedo, and RN at [facility]. We have decided patient is not a candidate for thrombectomy and will not proceed with CT angio head/neck. Son requesting patient be extubated. Patient was placed on 15L Oxy Mask and I ordered a Morphine drip. 1314: I spoke with residents working with Dr. West. Discussed patients PMHx, HPI, ED course, exam findings, labs, and radiology results. The hospitalist agree to accept the patient for admission. Patient data External records reviewed:: [facility] previous records (I reviewed admission from 03/02/2025 through 03/06/2025 for abdominal pain. ) Clinical information provided by:: EMS Social determinants that could affect healthcare access:: none Patient has the following chronic illnesses:: atrial fibrillation, hypertension, previous GI bleed How is presenting disease/condition affected by chronic disease/condition?: exacerbated by Evaluation data The following diagnostics were reviewed and interpreted by me:: lab results, radiology exam(s) and EKG tracing(s) (04/01/2025 @ 10:43 AM. Atrial fibrillation with RVR, HR 131, LVH, marked ST depression v4 through v6. ) Lab and/or radiology exams considered but not ordered:: None Interpretation Summary: Ordering Physician: Jong Malave MD Date of Service: 04/01/25 Procedure(s): XR chest 1V post procedure Accession Number(s): [id number] cc: Barry Noel MD; Jong Malave MD; Devyn Mneezes MD~ Examination: AP chest single view TECHNIQUE: AP portable supine chest single view Date and time: April 01, 2025, 11:15 AM Comparison February 10, 2023 INDICATIONS: Hypoxic respiratory failure postintubation FINDINGS: Mild enlargement cardiac contour. Prominent vascular congestion. No lobar pneumonia. Possible retrocardiac gastric hernia. Endotracheal tube tip 4.7 cm above vince. Orogastric tube sidehole at the GE junction IMPRESSION: Prominent vascular congestion Advance the orogastric tube 7 cm Dictated By: Devyn Menezes MD Signed By: <Electronically signed by Devyn Menezes MD in [place]> 04/01/25 1130 Ordering Physician: Jong Malave MD Date of Service: 04/01/25 Procedure(s): CT head/brain wo con Accession Number(s): [id number] cc: Barry Noel MD; Jong Malave MD; Devyn Menezes MD~ Examination: CT brain head without contrast. 2-D sagittal coronal reconstructions Date and time of exam:April 01, 2025, 1146 hours INDICATIONS: Altered mental status today CTDI: vol (mGy):46.1 DLP: (mGycm):941 Technique: Multiple CT axial sections of the brain have been obtained, 5 mm slice thickness. Contrast has not been administered. 2-D sagittal, coronal reconstructions have been obtained Low dose protocols were performed. One or more of the following dose reduction techniques were used; automated exposure control, adjustment of the mA and/or KV according to patient size, use of iterative reconstruction technique. 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 Dictated By: Devyn Menezes MD Signed By: <Electronically signed by Devyn Menezes MD in OV> 04/01/25 1215 Medications / Prescriptions Medications or Prescriptions considered but not ordered:: None Medication administrations:: Medication Administration History Propofol (Diprivan Ivpb) 1,000 mg in 100 mls @ 2.177 mls/hr IV .Q24H PRN; Protocol PRN Reason: PER PROTOCOL Stop: 05/01/25 10:58 Last Titration: 04/01/25 12:24 Dose: 30 mcg/kg/min, 13.064 mls/hr Documented By: Titration: 04/01/25 12:10 Dose: 25 mcg/kg/min, 10.886 mls/hr Documented By: Titration: 04/01/25 11:50 Dose: 20 mcg/kg/min, 8.709 mls/hr Documented By: Titration: 04/01/25 11:35 Dose: 15 mcg/kg/min, 6.532 mls/hr Documented By: Titration: 04/01/25 11:29 Dose: 10 mcg/kg/min, 4.355 mls/hr Documented By: Admin: 04/01/25 11:06 Dose: 5 mcg/kg/min, 2.177 mls/hr Documented By: COCO Co-signed By: GILDARDO Morphine Sulfate (Morphine Sulfate Iv Drip 100mg/100ml) 100 mls @ 2 mls/hr IV .Q24H PRN; Protocol PRN Reason: PAIN (COMFORT CARE) Stop: 04/06/25 12:52 Discontinued Medications Etomidate (Etomidate Inj 2 Mg/Ml Vial 10 Ml) 15 mg IV X1 ONE Stop: 04/01/25 10:40 Last Admin: 04/01/25 10:44 Dose: 15 mg Documented By: COCO Etomidate (Etomidate Inj 2 Mg/Ml Vial 10 Ml) Confirm Administered Dose 20 mg .ROUTE .STK-MED ONE Stop: 04/01/25 10:41 Last Admin: 04/01/25 10:45 Dose: Not Given Documented By: VG Non-Admin Reason: Duplicate Medication on eMAR Sodium Chloride (Ns) 1,000 mls @ 999 mls/hr IV .Q1H1M ONE Stop: 04/01/25 11:43 Last Infusion: 04/01/25 11:59 Dose: Infused Documented By: Admin: 04/01/25 10:46 Dose: 999 mls/hr Documented By: COCO Propofol (Diprivan Ivpb) Confirm Administered Dose 1,000 mg in 100 mls @ ud IV .STK-MED ONE Stop: 04/01/25 11:02 Last Admin: 04/01/25 11:06 Dose: Not Given Documented By: VG Non-Admin Reason: Duplicate Medication on eMAR Sodium Chloride (Ns) 1,000 mls @ 100 mls/hr IV .Q10H ONE Stop: 04/01/25 21:00 Last Admin: 04/01/25 11:53 Dose: Not Given Documented By: VG Non-Admin Reason: Discontinued Piperacillin/Tazobactam/Dextrose (Zosyn) 3.375 gm in 50 mls @ 100 mls/hr IV X1 ONE Stop: 04/01/25 11:37 Last Infusion: 04/01/25 11:58 Dose: Infused Documented By: Admin: 04/01/25 11:15 Dose: 100 mls/hr Documented By: VG Sodium Chloride (Ns) 1,000 mls @ 999 mls/hr IV .Q1H1M ONE Stop: 04/01/25 12:10 Last Infusion: 04/01/25 12:51 Dose: Infused Documented By: Admin: 04/01/25 11:14 Dose: 999 mls/hr Documented By: VG Acetaminophen (Ofirmev Inj) 1,000 mg in 100 mls @ 250 mls/hr IV X1 ONE Stop: 04/01/25 12:15 Last Infusion: 04/01/25 12:48 Dose: Infused Documented By: Admin: 04/01/25 12:13 Dose: 250 mls/hr Documented By: VG Morphine Sulfate (Morphine Sulf Inj 10 Mg/Ml Vial) 4 mg IVP X1 ONE Stop: 04/01/25 12:54 Last Admin: 04/01/25 13:00 Dose: 4 mg Documented By: VG Pantoprazole Sodium (Pantoprazole Inj 40 Mg Vial) 80 mg IVP X1 ONE Stop: 04/01/25 11:01 Last Admin: 04/01/25 11:10 Dose: 80 mg Documented By: VG Propofol (Propofol Inj 10 Mg/Ml Vial 20 Ml) 60 mg IV X1 ONE Stop: 04/01/25 11:00 Last Admin: 04/01/25 11:10 Dose: 60 mg Documented By: VG Comments: PUSHED BY DR MALAVE Succinylcholine Chloride (Succinylcholine Inj 20 Mg/Ml Vial 10 Ml) Confirm Administered Dose 200 mg .ROUTE .STK-MED ONE Stop: 04/01/25 10:42 Last Admin: 04/01/25 10:45 Dose: Not Given Documented By: VG Non-Admin Reason: Duplicate Medication on eMAR Succinylcholine Chloride (Succinylcholine Inj 20 Mg/Ml Vial 10 Ml) 100 mg IV X1 ONE Stop: 04/01/25 10:45 Last Admin: 04/01/25 10:44 Dose: 100 mg Documented By: COCO See above Consultations Consultation(s) initiated? (list below): Yes Consultation #1 (Physician, Specialty, Details): See MDM Diagnosis Differential diagnosis altered mental status: altered mental status, dementia, hypoglycemia, hyponatremia, subarachnoid hemorrhage, sepsis and other (GI bleed ) Most likely diagnosis given after review of the tests above:: acute CVA acute respiratory failure rapid afib DNR/comfort measures Admission Indicated Admission indicated?: indicated Explain why admission is indicated or not indicated:: For end of life care Admission Request Was there a request for admission?: Yes Admission Attestation Admission request attestation: Discussed case with [] from Hospitalist service regarding admission. Discussed patients ED course, exam findings, labs, and radiology results. The Hospitalist [agrees,declines] to accept the patient for admission. Disposition Plan Disposition Plan: Admit Critical Care Time Critical Care Time Critical Care Time: Yes Total Critical Care Time (min.): 60 Attestation: The high probability of sudden, clinically significant deterioration in the patient's condition required the highest level of my preparedness to intervene urgently. The services I provided to this patient were to treat and/or prevent clinically significant deterioration. Services included the following: chart data review, reviewing nursing notes and/or old charts, documentation time, marketing operations consultant collaboration regarding findings and treatment options, medication orders and management, direct patient care, vital sign assessments and ordering, interpreting and reviewing diagnostic studies and lab tests. Aggregate critical care time includes only time during which I was engaged in work directly related to the patient's care, as described above, whether at bedside or elsewhere in the Emergency Department. It did not include time spent performing other reported procedures or the services of residents, students, nurses or physician assistants. Discharge Plan Plan Patient Disposition: Admit Acute Care w/in Hospital Prescriptions/Referrals Prescriptions/Med Rec: No Action atenolol 50 mg tablet 50 mg PO Q24H Patient Comments: TAKE ONE TABLET BY MOUTH EVERY DAY FOR BLOOD PRESSURE atorvastatin 80 mg tablet 80 mg PO HS Patient Comments: TAKE ONE TABLET BY MOUTH AT BEDTIME FOR CHOLESTEROL amlodipine 2.5 mg Tablet 2.5 mg PO QDAY dicyclomine 20 mg Tablet 20 mg PO Q8HR PRN (Reason: nausea/vomiting) aspirin 81 mg Tablet 81 mg PO QDAY Referrals: Barry Noel MD [Primary Care Provider] - In 1 week Problem List Clinical Impression: Acute cerebrovascular accident (CVA), Acute respiratory failure, Rapid atrial fibrillation, DNR (do not resuscitate), Comfort measures only status Patient/Caregiver Discharge Instructions Print Language: Vietnamese Stand Alone Forms: Nathalia Award Info., Patient Portal Info Letter
--- NOTE | 2025-04-01 12:22 | PC.NURSE ---
special events coordinator: Noted head CT finding. Discussed with ED MD and recommended TeleNeuro consult. ED MD agrees and will pursue.
[2025-04-01 12:28] LABS: Basophils # (Auto) 0.0 Thou/mm3 (0.0-0.2); Basophils % (Auto) 0 % (0-2.5); Eosinophils # (Auto) 0.0 Thou/mm3 (0.0-0.5); Eosinophils % (Auto) 0 % (0-10); Hematocrit 44.7 % (36.0-46.0); Hemoglobin 14.5 g/dL (12.0-16.0); Immature Granulocytes Auto 0.04 Thou/mm3 (0.00-0.00); Lymphocytes # (Auto) 0.5 Thou/mm3 (1.0-4.8); Lymphocytes % (Auto) 3 % (10-50); Mean Corpuscular HGB Conc 32.4 g/dl (31.0-37.0); Mean Corpuscular Hemoglobin 33.1 pg (25.0-35.0); Mean Corpuscular Volume 102 fL (80-100); Monocytes # (Auto) 1.6 Thou/mm3 (0.0-0.8); Monocytes % (Auto) 10 % (0-12); Neutrophils # (Auto) 13.2 Thou/mm3 (1.8-7.7); Neutrophils % (Auto) 86 % (37-80); Nucleated Red Blood Cell # 0.00 Thou/mm3 (0.00-0.00); Nucleated Red Blood Cell % 0 /100 WBC (0); Platelet Count 249 Thou/mm3 (140-440); RDW Standard Deviation 57.3 fL (36.4-46.3); Red Blood Count 4.38 Miln/mm3 (4.00-5.20); White Blood Count 15.4 Thou/mm3 (3.6-11.0)
--- NOTE | 2025-04-01 12:30 | PC.NURSE ---
tele-neurologist at bedside to speak with provider and son.
[2025-04-01 12:41] LABS: INR 1.2 (0.9-1.3); Partial Thromboplastin Time 26.2 Seconds (22.0-36.0); Prothrombin Time 12.9 Seconds (9.0-12.2)
--- NOTE | 2025-04-01 12:45 | PC.NURSE ---
decision made by son to extubate. provider and RT at bedside to extubate.
[2025-04-01] MEDS: MORPHINE SULF INJ 10 MG/ML VIAL 4 MG IVP (13:00)
[2025-04-01 13:09] LABS: Acetaminophen < 2.0 mcg/mL (10.0-20.0); Alanine Aminotransferase 14 U/L (10-49); Albumin, Serum 3.2 gm/dL (3.4-4.8); Albumin/Globulin Ratio 1.6 (1.2-2.2); Alcohol, Blood Medical < 3.0 mg/dL (0-10.0); Alkaline Phosphatase 76 U/L (46-116); Anion Gap 13 (7-16); Aspartate Amino Transferase 39 U/L (0-34); BUN/Creatinine Ratio 25 Ratio (12-20); Bilirubin,Total 1.9 mg/dL (0.3-1.2); Blood Urea Nitrogen 33 mg/dL (9-23); Calcium 10.4 mg/dL (8.3-10.6); Calcium (Corrected) 11.0 mg/dL (8.5-10.1); Carbon Dioxide 21.5 mMol/L (20.0-31.0); Chloride 113 mMol/L (98-107); Creatinine (Component) 1.3 mg/dL (0.6-1.3); Estimated Creatinine Clearance 29.1 mL/min (>60); Globulin 2.0 gm/dL (2.3-3.5); Glucose 149 mg/dL (74-106); Magnesium 2.0 mg/dL (1.6-2.6); Osmolality,Calculated 302 (275-295); Potassium 4.3 mMol/L (3.4-5.1); Salicylate 4.9 mg/dL; Sodium 147 mMol/L (136-145); Total Protein 5.2 gm/dL (5.7-8.2); eGFR 40 See Note
[2025-04-01 13:11] LABS: Troponin I 0.243 ng/mL (0.0-0.045)
[2025-04-01] MEDS: Morphine IV Drip 100mg/100ml 100 ML IV (13:28)
--- NOTE | 2025-04-01 13:29 | ESHP_ITS ---
<Statement entered by Atul West MD - 04/12/25 08:45> I reviewed above note and agree with findings and plans. I have also personally examined the patient with medicine team and went over assessment and plan with medical team including events intern and resident physician. <Statement entered by Foreign Norris MD - 04/01/25 15:38> Senior Resident Attestation: I supervised/discussed management plan with events intern physician Dr. Garrett, and was involved in the care of this patient. I personally saw and examined the patient and discussed the assessment and plan with the entire medicine team, including my attending. I agree with the assessment and plan as documented. Patient is a 89 years old female with PMH of atrial fibrillation, hypertension, previous GI bleed presented to the ED from home after she was found unresponsive. Head CT showed very large acute nonhemorrhagic infarct in distribution left middle cerebral artery, severe impingement upon the left lateral ventricle, shift of the following dose of the right 5 mm. She was initially intubated in the ED however extubated and switched to comfort care per son's request. Morphine drip was started. Patient's care was discussed with attending physician, Dr. West. Foreign Norris MD PGY-3. Documentation for date of: 04/01/25 HPI History of Present Illness History of present illness: Ms. German is an 89 y/o woman with PMH of atrial fibrillation, hypertension, previous GI bleed presents to the ED BIBA from home for altered mental status today. Per medics, caregiver on scene reported finding the patient altered at 10:00 AM. Last known well 2 PM 03/31. No further history obtainable. Medics reported on scene the son requested everything to be performed. Patient was intubated in the ED. At 12:48 PM, Dr. Mejía (ED physician) spoke with patients son, teleneurologist Dr. Salcedo, and RN at beside. Decision was made to not proceed with CT angio head/neck and extubate the patient. Plan to start comfort care. Started Morphine gtt. Son, Lenny, at bedside. Review of Systems Review of Systems Narrative Review of Systems: 14 point ROS negative other than HPI Exam Vital Signs Temp Pulse Resp BP Pulse Ox O2 Del Method FiO2 99.7 F 93 22 H 119/65 95 Mechanical Ventilation 50 04/01/25 12:01 04/01/25 12:01 04/01/25 12:04/01/25 12:01 04/01/25 12:04/01/25 12:01 04/01/25 12:00 Narrative Exam General: Obtunded HENT: Normocephalic, atraumatic Lungs: Agonal breathing Heart: Normal S1 and S2 Abdomen: Soft, nondistended Musculoskeletal: No spontaneous movement Skin: Skin is warm, dry, no rashes or lesions. Neurologic: AOx0. GCS 3. Results: Labs 04/01/25 12:19 04/01/25 12:19 Labs: Short CBC 04/01/25 Range/Units 12:19 WBC 15.4 H (3.6-11.0) Thou/mm3 Hgb 14.5 (12.0-16.0) g/dL Hct 44.7 (36.0-46.0) % Plt Count 249 D (140-440) Thou/mm3 BMP 04/01/25 12:19 Sodium 147 H Potassium 4.3 Chloride 113 H Carbon Dioxide 21.5 BUN 33 H Creatinine 1.3 Glucose 149 H Calcium 10.4 Cardiac Enzymes 04/01/25 Range/Units 12:19 Troponin I 0.243 H* (0.0-0.045) ng/mL Liver Function 04/01/25 Range/Units 12:19 Total Bilirubin 1.9 H (0.3-1.2) mg/dL AST 39 H (0-34) U/L ALT 14 (10-49) U/L Alkaline Phosphatase 76 (46-116) U/L Albumin 3.2 L (3.4-4.8) gm/dL ABG Interpretation ABG results: 04/01/25 11:10 ABG pH 7.25 L ABG pCO2 52 H ABG pO2 219 H ABG HCO3 23 ABG O2 Saturation 100 H ABG Base Excess -5 L Quality Measures Quality Measures stroke Suspected type of Stroke: Unknown at this time Last known well (date): 03/31/25 Last known well (time): 14:00 Tenecteplase given: Reason(s) Tenecteplase not given: Outside the time window not given Rehab services: PT evaluation ordered (not ordered, comfort care) and Speech Language Pathology eval ordered (not ordered, comfort care) VTE Prophylaxis: refused Antithrombotic by day 2:: not indicated (describe) Statin ordered: n/a Anticoagulation ordered for A-fib or flutter (current or hx): refused and sepsis Current suspected stage: ruled out Possible source: other Blood cultures ordered: no Antibiotic ordered: No Advance care planning discussed with:: child Medications Home Medications and Allergies Home Medications ?Medication ?Instructions ?Recorded ?Confirmed ?Type amlodipine 2.5 mg tablet 2.5 mg PO QDAY 02/11/2308/28 History aspirin 81 mg tablet 81 mg PO QDAY 02/11/2303/04 History dicyclomine 20 mg tablet 20 mg PO Q8HR PRN nausea/vom iting 02/11/23 03/04/25 History atenolol 50 mg tablet 50 mg PO Q24H 03/03/2503/03 History atorvastatin 80 mg tablet 80 mg PO HS 03/03/25 5 History Allergies Allergy/AdvReac Type Severity Reaction Status Date / Time No Known Allergies Allergy Verified 03/02/25 15:46 Visit Medications Propofol (Diprivan Ivpb) 1,000 mg in 100 mls @ 2.177 mls/hr IV .Q24H PRN; Protocol PRN Reason: PER PROTOCOL Stop: 05/01/25 10:58 Last Titration: 04/01/25 12:24 Dose: 30 mcg/kg/min, 13.064 mls/hr Morphine Sulfate (Morphine Sulfate Iv Drip 100mg/100ml) 100 mls @ 2 mls/hr IV .Q24H PRN; Protocol PRN Reason: PAIN (COMFORT CARE) Stop: 04/06/25 12:52 Discontinued Medications Etomidate (Etomidate Inj 2 Mg/Ml Vial 10 Ml) 15 mg IV X1 ONE Stop: 04/01/25 10:40 Last Admin: 04/01/25 10:44 Dose: 15 mg Sodium Chloride (Ns) 1,000 mls @ 999 mls/hr IV .Q1H1M ONE Stop: 04/01/25 11:43 Last Infusion: 04/01/25 11:59 Dose: Infused Sodium Chloride (Ns) 1,000 mls @ 100 mls/hr IV .Q10H ONE Stop: 04/01/25 21:00 Last Admin: 04/01/25 11:53 Dose: Not Given Piperacillin/Tazobactam/Dextrose (Zosyn) 3.375 gm in 50 mls @ 100 mls/hr IV X1 ONE Stop: 04/01/25 11:37 Last Infusion: 04/01/25 11:58 Dose: Infused Sodium Chloride (Ns) 1,000 mls @ 999 mls/hr IV .Q1H1M ONE Stop: 04/01/25 12:10 Last Infusion: 04/01/25 12:51 Dose: Infused Acetaminophen (Ofirmev Inj) 1,000 mg in 100 mls @ 250 mls/hr IV X1 ONE Stop: 04/01/25 12:15 Last Infusion: 04/01/25 12:48 Dose: Infused Morphine Sulfate (Morphine Sulf Inj 10 Mg/Ml Vial) 4 mg IVP X1 ONE Stop: 04/01/25 12:54 Last Admin: 04/01/25 13:00 Dose: 4 mg Pantoprazole Sodium (Pantoprazole Inj 40 Mg Vial) 80 mg IVP X1 ONE Stop: 04/01/25 11:01 Last Admin: 04/01/25 11:10 Dose: 80 mg Propofol (Propofol Inj 10 Mg/Ml Vial 20 Ml) 60 mg IV X1 ONE Stop: 04/01/25 11:00 Last Admin: 04/01/25 11:10 Dose: 60 mg Succinylcholine Chloride (Succinylcholine Inj 20 Mg/Ml Vial 10 Ml) 100 mg IV X1 ONE Stop: 04/01/25 10:45 Last Admin: 04/01/25 10:44 Dose: 100 mg Assessment & Plan Plan Ms. German is an 89 y/o woman with PMH of atrial fibrillation, hypertension, previous GI bleed presents to the ED BIBA from home for altered mental status. S/P intubation then extubation once MPOA decided on comfort care given patient's clinical status and prognosis. Admitted for comfort care. #Obtunded #Comfort care GCS 3, Agonal breathing Son and MPOA, Lenny, decided on comfort care. Plan: - Morphine gtt - Artificial tears - Glycopyrrholate - Lidocaine patch - Scopolamine patch Code status: DNR/DNI Plan discussed with Dr. Norris and Dr. Jenna Garrett MD PGY1
--- NOTE | 2025-04-01 13:34 | PD.TNEURO ---
Tele Neuro Consultation Consultation Date 04/01/25 Most Recent Vital Signs Last Vital Signs Temp 99.7 F 04/01/25 12:01 Pulse 93 04/01/25 12:01 Resp 22 H 04/01/25 12:01 BP 119/65 04/01/25 12:01 Pulse Ox 95 04/01/25 12:01 O2 Del Method Mechanical Ventilation 04/01/25 12:01 FiO2 50 04/01/25 12:00 Laboratory-Coagulation Panel PT 12.9 Seconds (9.0-12.2) H 04/01/25 12:19 INR 1.2 (0.9-1.3) 04/01/25 12:19 APTT 26.2 Seconds (22.0-36.0) 04/01/25 12:19 Consultation Narrative [facility] Tele[facility] Consult [facility] Patient Name:???Sosa German Date of :???1935 Identification Number:??? 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 Patient emergently intubated upon arrival so exam limited by sedation/paralytics. CT head shows a large late acute/early subacute infarct involving the left GREGORY and MCA territories with mass effect upon the left lateral ventricle and slight rightward shift. CT findings reviewed with patient's son at bedside. I explained that patient would not be an interventional candidate based on her LKW time, limited baseline functional status, and CT findings of a completed large infarct. He is clear that patient would not want to remain intubated and has elected to transition to comfort care measures. ED staff at bedside involved in goals of care discussion and plan to extubate the patient shortly. Sign Out: ? Discussed with Emergency Department Provider Advanced Imaging:Advanced Imaging Deferred because: Advanced Imaging not obtained at this time. Reason: Family requesting extubation and comfort care. Metrics: Last Known Well: 03/31/2025 14:00:00 Dispatch Time: 04/01/2025 12:27:46 Arrival Time: 04/01/2025 10:37:00 Initial Response Time: 04/01/2025 12:30:12Symptoms: AMS. Initial patient interaction: 04/01/2025 12:30:32 NIHSS Assessment Completed: 04/01/2025 12:33:25Patient is not a candidate for Thrombolytic. Thrombolytic Medical Decision: 04/01/2025 12:33:26Patient was not deemed candidate for Thrombolytic because of following reasons: LKW outside 4.[address] Head: I personally reviewed all the CT images that were available to me and it showed: a large late acute/early subacute infarct involving the left GREGORY and MCA territories with mass effect upon the left lateral ventricle and slight rightward shift. Primary Provider Notified of Diagnostic Impression and Management Plan on: 04/01/2025 12:50:22 History of Present Illness:Patient is a 89 year old Female. Patient was brought by EMS for symptoms of AMS. 89yo F with a history of A fib, dementia, recent GI bleed, presenting via EMS with AMS. LKW 1400 yesterday. Patient emergently intubated for airway protection upon ED arrival. Son arrived later and states patient is a DNR/DNI. At baseline patient ambulates with a walker, has a caregiver that assists patient with bathing, cooking. ? Past Medical History: ?Hypertension ?Hyperlipidemia ?Atrial Fibrillation ?Dementia/MCI Medications: No Anticoagulant use? Antiplatelet use:?Yes?aspirin Reviewed EMR for current medications Allergies:? Reviewed Social History: Drug Use: No Family History: There is no family history of premature cerebrovascular disease pertinent to this consultation ROS : 14 Points Review of Systems was performed and was negative except mentioned in HPI. Past Surgical History: There Is No Surgical History Contributory To Today?s Visit NIHSS may not be reliable due to: Patient was intubated and paralyzed Examination: BP(119/65),?Pulse(93),?Blood Glucose(146) 1A: Level of Consciousness - Postures or Unresponsive?+ 3 1B: Ask Month and Age - Dysarthric/Intubated/ Trauma/Language Barrier?+ 1 1C: Blink Eyes & Squeeze Hands - Performs 0 Tasks?+ 2 2: Test Horizontal Extraocular Movements - Normal?+ 0 3: Test Visual [place] - Bilateral Hemianopia?+ 3 4: Test Facial Palsy (Use Grimace if Obtunded) - Normal symmetry?+ 0 5A: Test Left Arm Motor Drift - No Movement?+ 4 5B: Test Right Arm Motor Drift - No Movement?+ 4 6A: Test Left Leg Motor Drift - No Movement?+ 4 6B: Test Right Leg Motor Drift - No Movement?+ 4 7: Test Limb Ataxia (FNF/Heel-[place]) - No Ataxia?+ 0 8: Test Sensation - Coma/Unresponsive?+ 2 9: Test Language/Aphasia - Coma/Unresponsive?+ 3 10: Test Dysarthria - Intubated/Unable to Test?+ 0 11: Test Extinction/Inattention - No abnormality?+ 0 NIHSS Score:?30 Pre-Morbid Modified [place] Scale:3 Points = Moderate disability; requiring some help, but able to walk without assistance Spoke with :?Dr. Mejía This consult was conducted in real time using interactive audio and video technology. Patient was informed of the technology being used for this visit and agreed to proceed. Patient located in hospital and provider located at home/office setting. Patient is being evaluated for possible acute neurologic impairment and high probability of imminent or life-threatening deterioration. I spent total of 35 minutes providing care to this patient, including time for face to face visit via telemedicine, review of medical records, imaging studies and discussion of findings with providers, the patient and/or family. Dr Gabe Salcedo [facility] For Inpatient follow-up with [facility] physician please call [facility] at . As we are not an outpatient service for any post hospital discharge needs please contact the hospital for assistance. If you have any questions for the [facility] physicians or need to reconsult for clinical or diagnostic changes please contact us via [facility] at . Signature :?Gabe Salcedo
--- NOTE | 2025-04-01 14:02 | PC.NURSE ---
PER DR. MALAVE, PT TIME OF 1402HRS
--- NOTE | 2025-04-01 14:12 | DES_ITS ---
<Statement entered by Atul West MD - 04/12/25 08:45> I reviewed above note and agree with findings and plans. I have also personally examined the patient with medicine team and went over assessment and plan with medical team including technology risk intern and resident physician. Documentation for date of: 04/01/25 Pronouncement Note Date and Time of Date of : 04/01/25 Time of : 14:02 PCOD Preliminary cause of : Cardiopulmonary arrest Summary Additional details: Patient at 14:02 PM 04/01/2025. No pupillary response, no corneal response, no heart sounds, no breath sounds. Son, Lenny, was informed. Georgette Garrett MD PGY1 Additional Data Attending physician: Dr. Atul West
[2025-04-01 14:22] LABS: Reflex Lactate? Y
--- NOTE | 2025-04-01 14:27 | DES_ITS ---
<Statement entered by Atul West MD - 04/12/25 08:45> I reviewed above note and agree with findings and plans. I have also personally examined the patient with medicine team and went over assessment and plan with medical team including agriculture internship and resident physician. Documentation for date of: 04/01/25 Summary Date and Time Date of admission: 04/01/25 Date of : 04/01/25 Time of : 14:02 Summary Hospital Course: Ms. German is an 89 y/o woman with PMH of atrial fibrillation, hypertension, pr evious GI bleed presents to the ED BIBA from home for altered mental status today. Per medics, caregiver on scene reported finding the patient altered at 10:00 AM. Last known well 2 PM 03/31. No further history obtainable. Medics reported on scene the son requested everything to be performed. Patient was intubated in the ED. CT head shows a large late acute/early subacute infarct involving the left GREGORY and MCA territories with mass effect upon the left lateral ventricle and slight rightward shift. At 12:48 PM, Dr. Mejía (ED physician) spoke with patient's son, teleneurologist Dr. Salcedo, and RN at beside. Decision was made to not proceed with CT angio head/neck and extubate the patient. Pt obtunded, GCS 3, agonal breathing. Plan to start comfort care. Given Morphine 4 mg IV x1. Started Morphine gtt. SonLenny, at bedside. Ordered Morphine gtt, artificial tears, glycopyrrholate, lidocaine patch, scopolamine patch. Patient at 14:02 PM 04/01/2025. No pupillary response, no corneal response, no heart sounds, no breath sounds. SonLenny, was informed. Georgette Garrett MD PGY1 Additional Data Attending physician: Dr. Atul West Visit Providers Provider Primary care physician: Barry Noel MD Consults: 04/01/25 12:23 Consult to Neurology / Tele-Neurology Routine Comment: Consulting Provider: [facility] Diagnosis PCOD Cause of : Cardiopulmonary arrest Discharge Plan Plan Patient Disposition: Admit Acute Care w/in Hospital Prescriptions/Referrals Prescriptions/Med Rec: No Action atenolol 50 mg tablet 50 mg PO Q24H Patient Comments: TAKE ONE TABLET BY MOUTH EVERY DAY FOR BLOOD PRESSURE atorvastatin 80 mg tablet 80 mg PO HS Patient Comments: TAKE ONE TABLET BY MOUTH AT BEDTIME FOR CHOLESTEROL amlodipine 2.5 mg Tablet 2.5 mg PO QDAY dicyclomine 20 mg Tablet 20 mg PO Q8HR PRN (Reason: nausea/vomiting) aspirin 81 mg Tablet 81 mg PO QDAY Referrals: Barry Noel MD [Primary Care Provider] - In 1 week Problem List Clinical Impression: Acute cerebrovascular accident (CVA), Acute respiratory failure, Rapid atrial fibrillation, DNR (do not resuscitate), Comfort measures only status Patient/Caregiver Discharge Instructions Print Language: Egyptian Stand Alone Forms: Nathalia Award Info., Patient Portal Info Letter
[2025-04-01 14:39] LABS: B-Type Natriuretic Peptide 309 pg/mL (0-100)
--- NOTE | 2025-04-01 15:25 | PC.NURSE ---
Jermaine here to picker/puller
== END 2025-04-01 14:02 | disposition expired | DRG 64 ==
LOC: SERX 13:38 → SERHOLD 14:32
PROVIDERS: Admitting Provider Internal Medicine; Emergency Provider Family Medicine; PCP Internal Medicine; Visit Provider Internal Medicine
DX: I63.522 Cerebral infarction due to unspecified occlusion or stenosis of left anterior cerebral artery (principal); J96.00 Acute respiratory failure, unspecified whether with hypoxia or hypercapnia; I48.91 Unspecified atrial fibrillation; I10 Essential (primary) hypertension; Z66 Do not resuscitate; Z51.5 Encounter for palliative care; R40.2433 Glasgow coma scale score 3-8, at hospital admission; I46.8 Cardiac arrest due to other underlying condition
CPT/HCPCS: 36415; 36600; 70450; 80053; 80185; 80307; 80320; 80329; 81001; 82803; 83605; 83735; 83880; 84484; 85025; 85610; 85730; 87040; 87086; 87205; 93005; 94002; 96361; 96365; 96375; 99284; J0131; J0330; J2270; J2470; J2543; J2704; J3490; J7030; G0480